=== PATIENT | female | born 1995 | race African-American/Black ===

== ENCOUNTER 2017-04-01 08:45 | Emergency (ER) | payer MEDICAID ==
[~2017-04-01] VITALS: Ht 160 cm; Wt 63.5 kg
[~2017-04-01 08:45] MED LIST: CIPRO500 MG PO; IBUPROFEN800 MG ORAL; MACROBID100 MG ORAL; PRENATAL VITAM1 EAC4 PO; TYLENOL EXTRA500 MG ORAL; ZOFRAN4 M1 ORAL
--- NOTE | 2017-04-01 09:12 | Emergency Room Report ---
History of Present Illness General Chief Complaint: Abdominal Pain Source: Patient, Medical Record Present Illness HPI 22YOF walk-in with 2 days generalized abd pain with nausea/vomiting. States pain only when awake - is able to sleep. No associated fever/chills, diarrhea, sick contacts. No urinary complaints. Went to [facility] yesterday but "they didnt take me seriously." States was at [facility] last week for "left sided stroke" and arranging all the occupational and physical therapy last couple of days has "given me stress and abdominal pain." However not on ASA or other AC post- alleged CVA. Denies any weakness in left side currently. Specific request made for Noco here. Boyfriend arrived later - provided additional HPI: - States patient has history of psych, ?depression. Non-compliant with medication - He has been working more, states she is probably "acting out for attention," "has history of doing this," and "is worried I'm going to leave her so she acts out." - tested positive for meth and MJ at other hospital last week Allergies: Coded Allergies: PENICILLINS (Unverified Allergy, Unknown, 04/19/14) RIFAMPIN (Unverified Allergy, Unknown, 04/19/14) SULFAMETHOXAZOLE (Unverified Allergy, Unknown, 04/19/14) TRIMETHOPRIM (Unverified Allergy, Unknown, 04/19/14) Patient History Past Medical History: none, psych hx Past Surgical History: none Pertinent Family History: none Social History: Reports: drug use, smoking Last Menstrual Period: Depo shot Now: No Immunizations: UTD Reviewed Nursing Documentation: PMH: Agreed, PSxH: Agreed Nursing Documentation-PMH Past Medical History: No History, Except For Hx Cardiac Problems: No Hx Hypertension: No Hx Pacemaker: No Hx Asthma: No Hx COPD: No Hx Diabetes: No Hx Cancer: No Hx Gastrointestinal Problems: No - CHOLECYSTECTOMY Hx Dialysis: No History Of Psychiatric Problem: Yes - Bipolar Hx Neurological Problems: No Hx Cerebrovascular Accident: Yes Hx Seizures: No Review of Systems All Other Systems: negative except mentioned in HPI Physical Exam Vital Signs Date Time Temp Pulse Resp B/P Pulse Ox O2 Delivery O2 Flow Rate FiO2 04/01/17 08:59 98.1 102 20 116/69 98 Room Air Sp02 EP Interpretation: reviewed, abnormal General Appearance: normal inspection, well appearing, no apparent distress, alert, GCS 15, non-toxic, other - Writhing, convulsing on stretcher Eyes: bilateral eye EOMI, bilateral eye PERRL ENT: normal ENT inspection, hearing grossly normal, normal voice Neck: normal inspection, full range of motion, supple, no bony tend Respiratory: normal inspection, lungs clear, normal breath sounds, no rhonchi, no respiratory distress, no retraction, no accessory muscle use, no wheezing Cardiovascular #1: regular rate, rhythm, no edema Gastrointestinal: normal inspection, normal bowel sounds, non tender, soft, no guarding, no hernia Genitourinary: no CVA tenderness Musculoskeletal: normal inspection, back normal, normal range of motion, Nurys' s Sign negative Neurologic: normal inspection, alert, oriented x3, responsive, cooler deliverer III-XII nml as tested, speech normal Psychiatric: normal inspection, judgement/insight normal, mood/affect normal Skin: normal inspection, normal color, no rash Lymphatic: normal inspection Medical Decision Making Diagnostic Impression: Primary Impression: Abdominal pain Qualified Codes: R10.84 - Generalized abdominal pain Additional Impressions: Drug-seeking behavior Methamphetamine abuse Marijuana abuse Malingering ER Course Abdominal pain for 2 days - VS with mild tachycardia d/t dramatic presentation, writhing on stretching. Normotensive. Afebrile - Very histrionic, writhing but when compelled, stops writhing and provides HPI. - Nontender abdomen focally when distracted - Not - UA: hematuria, on period - Utox: + for meth, MJ - Low suspicion for acute bacterial or surgical process because if she had a surgical abdomen or peritonitis she would not be able to writhe, convulse on stretcher - In addition, patient is moving all extremities in writhing on stretcher, ambulated into ED, I question recent CVA/TIA as well. - There is likely a large psych component here, as well as malingering for secondary gain of attention from her boyfriend - Advised STOP any more illicit drug use - Provided info for outpatient psych walk-in clinic at [facility] - Rx Capacian cream for abd pain from MJ abuse DC home with boyfriend Last Vital Signs Date Time Temp Pulse Resp B/P Pulse Ox O2 Delivery O2 Flow Rate FiO2 04/01/17 08:59 98.1 102 20 116/69 98 Room Air Status: improved Disposition: HOME, SELF-CARE Scripts Capsaicin (CAPSAICIN) 42.5 Gm Cream..g. 42.5 GM TP TID for stomach pain for 7 Days, #1 UNIT Prov: CLARA BEE M.D. 04/01/17 Referrals: NOT CHOSEN JAN/,REFERRING (PCP) CLARA BEE M.D. Apr 01, 2017 09:12
[2017-04-01] MEDS ORDERED: Ketorolac 60mg Inj IM ONE (09:15)
[2017-04-01 09:23] LABS: APPEARANCE,URINE CLEAR; KETONES,URINE 2+ (NEGATIVE); LEUKOCYTE ESTERASE ,URINE 1+ (NEGATIVE); NITRITE,URINE NEGATIVE (NEGATIVE); PH,URINE 5 (4.5-8.0); PROTEIN,URINE 2+ (NEGATIVE); UROBILINOGEN,URINE NORMAL MG/DL (0.0-1.0)
[2017-04-01 09:37] LABS: BACTERIA,URINE FEW /HPF; MUCUS,URINE FEW /LPF (NONE/OCC); SQUAMOUS EPITHELIAL CELL,UR FEW /LPF (NONE/OCC)
[2017-04-01] MEDS ORDERED: LORazepam Inj 2mg/ml 1ml IM ONE (09:45)
[2017-04-01] MEDS ORDERED: CAPSAICIN42.5 GM TP (09:51)
[2017-04-01 10:12] VITALS: BP 115/71
[2017-04-02] MEDS ORDERED: NKM (11:31)
[2017-04-02] MEDS ORDERED: NITROFURANTOIN100 M2 ORAL (17:11)
== END 2017-04-01 10:17 | disposition home or self-care (01) ==
LOC: EMR 08:56
DX: R10.9 Unspecified abdominal pain (principal); Z76.5 Malingerer [conscious simulation]; F15.10 Other stimulant abuse, uncomplicated; F12.10 Cannabis abuse, uncomplicated; Z86.73 Personal history of transient ischemic attack (TIA), and cerebral infarction without residual deficits; R11.2 Nausea with vomiting, unspecified; Z90.49 Acquired absence of other specified parts of digestive tract; F31.9 Bipolar disorder, unspecified; Z88.2 Allergy status to sulfonamides; Z88.0 Allergy status to penicillin; Z88.8 Allergy status to other drugs, medicaments and biological substances
CPT/HCPCS: 80300; 81003; 81025; 96372; 99283

== ENCOUNTER 2017-04-02 21:06 | Emergency (ER) | payer MEDICAID, OTHER ==
[~2017-04-02] VITALS: Ht 162.6 cm; Wt 68.0 kg
[~2017-04-02 21:06] MED LIST changes: -ACETAMINOPHEN-1 EAC1 ORAL; -Famotidine 20 MG/ 2ML VIAL IVP ONE; -Haloperidol 5mg/ml Inj IM ONE; -Ketorolac 30mg Inj IV ONE; -LORazepam Inj 2mg/ml 1ml IV ONE; -Morphine Sulfate 4mg/ml Inj IVP ONE; -RANITIDINE HCL150 MG ORAL
[2017-04-02] MEDS ORDERED: Morphine Sulfate 2mg/ml Inj IVP ONE (21:45)
[2017-04-02 22:32] LABS: ALANINE AMINOTRANSFERASE 16 U/L (3-33); ALBUMIN/GLOBULIN RATIO 1.2 (1.0-2.7); ANION GAP 19 (5-15); ASPARTATE AMINO TRANSFERASE 26 U/L (5-40); CARBON DIOXIDE 21 mEQ/L (20-30); CHLORIDE 101 mEQ/L (98-107); CREATININE 0.7 mg/dL (0.5-0.9); GLOMERULAR FILTRATION RATE > 60 mL/min (>60); HEMOLYSIS 14; LIPASE 21 U/L (< 60); POTASSIUM 3.5 mEQ/L (3.4-4.9); SODIUM 141 mEQ/L (135-145); TOTAL PROTEIN 7.9 g/dL (6.6-8.7)
[2017-04-02 22:35] LABS: MEAN CORPUSCULAR HEMOGLOBIN 31.3 PG (27.0-31.0); MEAN CORPUSCULAR HGB CONC 33.1 G/DL (32.0-36.0); MEAN CORPUSCULAR VOLUME 94 FL (80-99); MEAN PLATELET VOLUME 9.9 FL (6.5-10.1); PLATELET COUNT 170 K/UL (150-450); RED CELL DISTRIBUTION WIDTH 12.3 % (11.6-14.8); WHITE BLOOD COUNT 8.7 K/UL (4.8-10.8)
[2017-04-02 23:34] LABS: BAND NEUTROPHILS % (MANUAL) 0 % (0-8); BASOPHILS % (MANUAL) 0 % (0-2); EOSINOPHILS % (MANUAL) 0 % (0-3); LYMPHOCYTES % (MANUAL) 8 % (20-45); NEUTROPHILS % (MANUAL) 88 % (45-75); PLATELET ESTIMATE ADEQUATE; TOTAL CELLS COUNTED 100
[2017-04-02 23:35] LABS: PLATELET MORPHOLOGY NORMAL
[2017-04-03] MEDS ORDERED: Morphine Sulfate 4mg/ml Inj IVP ONE
[2017-04-03] MEDS ORDERED: RANITIDINE HCL150 MG ORAL (00:07)
[2017-04-03] MEDS ORDERED: ACETAMINOPHEN-1 EAC1 ORAL (00:07)
[2017-04-03 00:11] LABS: APPEARANCE,URINE CLOUDY; KETONES,URINE 4+ (NEGATIVE); LEUKOCYTE ESTERASE ,URINE 3+ (NEGATIVE); NITRITE,URINE NEGATIVE (NEGATIVE); PH,URINE 5 (4.5-8.0); PROTEIN,URINE 2+ (NEGATIVE); UROBILINOGEN,URINE 1 MG/DL (0.0-1.0)
[2017-04-03 00:22] LABS: BACTERIA,URINE FEW /HPF; RBC,URINE TNTC /HPF (0 - 2); SQUAMOUS EPITHELIAL CELL,UR MODERATE /LPF (NONE/OCC)
[2017-04-03 00:23] LABS: MUCUS,URINE FEW /LPF (NONE/OCC)
[2017-04-03 00:29] VITALS: BP 110/70
[2017-04-03 00:39] VITALS: BP 110/70
--- NOTE | 2017-04-03 02:48 | Emergency Room Report ---
History of Present Illness General Chief Complaint: Abdominal Pain Source: Patient, Significant Other Present Illness HPI 22-year-old female presents to ED complaining of abdominal pain. States she's had the pain for the last few days. Epigastric, 9/10, sharp. Denies nausea and vomiting. Denies chest pain shortness of breath. Per triage patient has been here earlier today and yesterday for similar complaint. Patient was apparently very agitated and combative and disruptive to the ER. Patient did require sedation on last ED visit. Patient's fiance called and when patient was being triaged. States that patient has an extensive psychiatric history and believes her pain is likely psychosomatic. No other aggravating or relieving factors. Denies any other associated symptom Allergies: Coded Allergies: PENICILLINS (Unverified Allergy, Unknown, 04/19/14) RIFAMPIN (Unverified Allergy, Unknown, 04/19/14) SULFAMETHOXAZOLE (Unverified Allergy, Unknown, 04/19/14) TRIMETHOPRIM (Unverified Allergy, Unknown, 04/19/14) Patient History Past Medical History: CVA/TIA Past Surgical History: freedom Pertinent Family History: none Social History: Denies: alcohol use, drug use, smoking Last Menstrual Period: unk Now: No Immunizations: UTD Reviewed Nursing Documentation: PMH: Agreed, PSxH: Agreed Nursing Documentation-PMH Hx Cardiac Problems: No Hx Hypertension: No Hx Pacemaker: No Hx Asthma: No Hx COPD: No Hx Diabetes: No Hx Cancer: No Hx Gastrointestinal Problems: Yes - CHOLECYSTECTOMY Hx Dialysis: No Hx Neurological Problems: No Hx Cerebrovascular Accident: Yes - stroke 01/25 Hx Seizures: No Review of Systems All Other Systems: negative except mentioned in HPI Physical Exam Vital Signs Date Time Temp Pulse Resp B/P Pulse Ox O2 Delivery O2 Flow Rate FiO2 04/02/17 21:39 98.1 77 16 137/66 98 Room Air Sp02 EP Interpretation: reviewed, normal General Appearance: no apparent distress, alert, GCS 15, non-toxic Head: normocephalic Eyes: bilateral eye PERRL, bilateral eye normal inspection ENT: normal ENT inspection Neck: normal inspection Respiratory: chest non-tender, lungs clear, normal breath sounds, speaking full sentences Cardiovascular #1: regular rate, rhythm, no edema Gastrointestinal: normal bowel sounds, soft, non-distended, no guarding, no rebound, tenderness - epigastric Rectal: deferred Genitourinary: no CVA tenderness Musculoskeletal: normal inspection Neurologic: alert, oriented x3, responsive, motor strength/tone normal, sensory intact, speech normal Psychiatric: anxious Skin: normal inspection Lymphatic: normal inspection Medical Decision Making Diagnostic Impression: Primary Impression: Abdominal pain Qualified Codes: R10.9 - Unspecified abdominal pain Additional Impression: Malingering ER Course Hospital Course 22-year-old F presents to ED with abdominal pain Differential diagnosis includes-appendicitis, cholecystitis, small bowel obstruction, gastritis, Clinical course Patient placed on stretcher. After initial history and physical I ordered labs , IV fluids, pain medications and CT scan Labs - no leukocytosis, electrolytes ok, LFTs normal patient refused CT Scan on last ED visit patient also refused CT scan. Patient has negative workup otherwise. On last visit U tox positive for amphetamines Patient is disruptive to the ER screaming and yelling. I explained to the patient that she continues this behavior she will be discharged I feel this is a highly complex case requiring extensive working including EKG/ Rhythm strip, Xray/CT/US, Blood/urine lab work, repeat exams while in ED, and administration of strong opiates/narcotics for pain control, admission to hospital or close patient follow up. Diagnosis - abdominal pain, malingering Stable and discharged to home. Followup with PMD. Return to ED if symptoms recur or worsen Labs Test 04/02/17 10:35 04/02/17 21:54 Urine Color Yellow Urine Appearance Cloudy Urine pH 5 (4.5-8.0) Urine Specific [place] 1.025 (1.005-1.035) Urine Protein 2+ (NEGATIVE) Urine Glucose (UA) Negative (NEGATIVE) Urine Ketones 4+ (NEGATIVE) Urine Occult Blood 5+ (NEGATIVE) Urine Nitrite Negative (NEGATIVE) Urine Bilirubin Negative (NEGATIVE) Urine Urobilinogen 1 MG/DL (0.0-1.0) Urine Leukocyte Esterase 3+ (NEGATIVE) Urine RBC Tntc /HPF (0 - 2) Urine WBC 10-15 /HPF (0 - 2) Urine Squamous Epithelial Cells Moderate /LPF (NONE/OCC) Urine Bacteria Few /HPF (NONE) Urine Coarse Granular Casts 10-15 /LPF (NONE) Urine Mucus Few /LPF (NONE/OCC) Urine HCG, Qualitative Negative Urine Opiates Screen Positive (NEGATIVE) Urine Barbiturates Screen Negative (NEGATIVE) Phencyclidine (PCP) Screen Negative (NEGATIVE) Urine Amphetamines Screen Negative (NEGATIVE) Urine Benzodiazepines Screen Negative (NEGATIVE) Urine Cocaine Screen Negative (NEGATIVE) Urine Marijuana (THC) Screen Positive (NEGATIVE) White Blood Count 8.7 K/UL (4.8-10.8) Red Blood Count 4.10 M/UL (4.20-5.40) Hemoglobin 12.8 G/DL (12.0-16.0) Hematocrit 38.6 % (37.0-47.0) Mean Corpuscular Volume 94 FL (80-99) Mean Corpuscular Hemoglobin 31.3 PG (27.0-31.0) Mean Corpuscular Hemoglobin Concent 33.1 G/DL (32.0-36.0) Red Cell Distribution Width 12.3 % (11.6-14.8) Platelet Count 170 K/UL (150-450) Mean Platelet Volume 9.9 FL (6.5-10.1) Neutrophils (%) (Auto) % (45.0-75.0) Lymphocytes (%) (Auto) % (20.0-45.0) Monocytes (%) (Auto) % (1.0-10.0) Eosinophils (%) (Auto) % (0.0-3.0) Basophils (%) (Auto) % (0.0-2.0) Differential Total Cells Counted 100 Neutrophils % (Manual) 88 % (45-75) Lymphocytes % (Manual) 8 % (20-45) Monocytes % (Manual) 4 % (1-10) Eosinophils % (Manual) 0 % (0-3) Basophils % (Manual) 0 % (0-2) Band Neutrophils 0 % (0-8) Platelet Estimate Adequate Platelet Morphology Normal Red Blood Cell Morphology Normal Sodium Level 141 mEQ/L (135-145) Potassium Level 3.5 mEQ/L (3.4-4.9) Chloride Level 101 mEQ/L (98-107) Carbon Dioxide Level 21 mEQ/L (20-30) Anion Gap 19 (5-15) Blood Urea Nitrogen 8 mg/dL (7-23) Creatinine 0.7 mg/dL (0.5-0.9) Estimat Glomerular Filtration Rate > 60 mL/min (>60) Glucose Level 133 mg/dL (74-106) Calcium Level 9.0 mg/dL (8.6-10.2) Total Bilirubin 0.3 mg/dL (0.0-1.2) Aspartate Amino Transf (AST/SGOT) 26 U/L (5-40) Alanine Aminotransferase (ALT/SGPT) 16 U/L (3-33) Alkaline Phosphatase 74 U/L (35-104) Total Protein 7.9 g/dL (6.6-8.7) Albumin 4.4 g/dL (3.5-5.2) Globulin 3.5 g/dL Albumin/Globulin Ratio 1.2 (1.0-2.7) Lipase 21 U/L (< 60) CT/MRI/US Diagnostic Results CT/MRI/US Diagnostic Results : Imaging Test Ordered: CT A/P Impression patient refused Last Vital Signs Date Time Temp Pulse Resp B/P Pulse Ox O2 Delivery O2 Flow Rate FiO2 04/03/17 00:39 70 18 110/70 100 Room Air 04/03/17 00:29 97.8 Status: improved Disposition: HOME, SELF-CARE Condition: Stable Scripts Ranitidine Hcl* (ZANTAC*) 150 Mg Tablet 150 MG ORAL TWICE A DAY, #30 TAB Prov: SERENITY MURPHY M.D. 04/03/17 Acetaminophen With Codeine (T#3) (TYLENOL #3 TAB*) Y Tab 1 TAB ORAL Q8H Y for For Pain, #20 TAB Prov: SERENITY MURPHY M.D. 04/03/17 Referrals: [facility],REFERRING (PCP) Patient Instructions: Abdominal Pain, Adult SERENITY MURPHY M.D. Apr 03, 2017 02:48
== END 2017-04-03 00:25 | disposition home or self-care (01) ==
LOC: EMR 21:41
DX: R10.13 Epigastric pain (principal); Z76.5 Malingerer [conscious simulation]; Z90.49 Acquired absence of other specified parts of digestive tract; Z86.73 Personal history of transient ischemic attack (TIA), and cerebral infarction without residual deficits
CPT/HCPCS: 36415; 80053; 80300; 81003; 81025; 83690; 85007; 85025; 87086; 96374; 96375; 99284; J2270; J2405; J7040

== ENCOUNTER → 2017-04-02 | Emergency (ER) | payer MEDICAID ==
[~2017-04-02] VITALS: Ht 167.6 cm; Wt 84.4 kg
[~2017-04-02] MED LIST changes: +ACETAMINOPHEN-1 EAC1 ORAL; +CAPSAICIN42.5 GM TP; +Famotidine 20 MG/ 2ML VIAL IVP ONE; +Haloperidol 5mg/ml Inj IM ONE; +Ketorolac 30mg Inj IV ONE; +LORazepam Inj 2mg/ml 1ml IV ONE; +Morphine Sulfate 4mg/ml Inj IVP ONE; +NITROFURANTOIN100 M2 ORAL; +NKM; +RANITIDINE HCL150 MG ORAL
[2017-04-02] MEDS: Lidocaine 2% Visc 15ml soln ORAL ONE ×2 (12:34→12:42)
[2017-04-02 12:58] LABS: BASOPHILS % (AUTO) 0.9 % (0.0-2.0); EOSINOPHILS % (AUTO) 1.3 % (0.0-3.0); LYMPHOCYTES % (AUTO) 16.5 % (20.0-45.0); MEAN CORPUSCULAR HEMOGLOBIN 30.6 PG (27.0-31.0); MEAN CORPUSCULAR HGB CONC 32.7 G/DL (32.0-36.0); MEAN CORPUSCULAR VOLUME 93 FL (80-99); MEAN PLATELET VOLUME 10.1 FL (6.5-10.1); MONOCYTES % (AUTO) 8.1 % (1.0-10.0); NEUTROPHILS % (AUTO) 73.2 % (45.0-75.0); PLATELET COUNT 189 K/UL (150-450); RED BLOOD COUNT 4.44 M/UL (4.20-5.40); RED CELL DISTRIBUTION WIDTH 12.5 % (11.6-14.8); WHITE BLOOD COUNT 6.7 K/UL (4.8-10.8)
[2017-04-02 13:01] LABS: ALANINE AMINOTRANSFERASE 14 U/L (3-33); ALBUMIN/GLOBULIN RATIO 1.3 (1.0-2.7); ANION GAP 17 (5-15); ASPARTATE AMINO TRANSFERASE 23 U/L (5-40); CALCIUM 8.8 mg/dL (8.6-10.2); CARBON DIOXIDE 21 mEQ/L (20-30); CHLORIDE 101 mEQ/L (98-107); CREATININE 0.8 mg/dL (0.5-0.9); GLOMERULAR FILTRATION RATE > 60 mL/min (>60); HEMOLYSIS 5; POTASSIUM 3.7 mEQ/L (3.4-4.9); SODIUM 139 mEQ/L (135-145); TOTAL PROTEIN 7.4 g/dL (6.6-8.7); TROPONIN I < 0.30 ng/mL (<=0.30)
[2017-04-02 13:06] LABS: APPEARANCE,URINE SLIGHTLY CLOUDY; KETONES,URINE 2+ (NEGATIVE); LEUKOCYTE ESTERASE ,URINE 3+ (NEGATIVE); NITRITE,URINE NEGATIVE (NEGATIVE); PH,URINE 6 (4.5-8.0); PROTEIN,URINE 2+ (NEGATIVE); UROBILINOGEN,URINE 1 MG/DL (0.0-1.0)
[2017-04-02 13:11] LABS: CKMB 2.1 ng/mL (< 3.8)
[2017-04-02 13:17] LABS: RBC,URINE TNTC /HPF (0 - 2)
[2017-04-02 13:18] LABS: BACTERIA,URINE MODERATE /HPF; SQUAMOUS EPITHELIAL CELL,UR MANY /LPF (NONE/OCC); WBC,URINE 20-30 /HPF (0 - 2)
[2017-04-02 14:33] VITALS: BP 137/83
--- NOTE | 2017-04-02 15:47 | Emergency Room Report ---
History of Present Illness General Chief Complaint: Chest Pain Source: Patient, Medical Record Present Illness HPI This patient is well known to [facility]. She was here yesterday for the same sx. She c/o abdominal pain and nausea and vomiting. She has a significant psychiatric hx. The patient was here yesterday with her boyfriend. Per the medical record, the patient is very dramatic when she is worried that her boyfriend is going to leave her. She currently is screaming and crying and dancing around the room. She is difficult to obtain a history from. Of note she is found to have amphetamines and THC in her urine. With review of yesterday's visit, it sounds like a very similar presentation. Allergies: Coded Allergies: PENICILLINS (Unverified Allergy, Unknown, 04/19/14) RIFAMPIN (Unverified Allergy, Unknown, 04/19/14) SULFAMETHOXAZOLE (Unverified Allergy, Unknown, 04/19/14) TRIMETHOPRIM (Unverified Allergy, Unknown, 04/19/14) Patient History Past Medical History: see triage record, CVA/TIA, psych hx Past Surgical History: freedom Social History: Reports: drug use, Denies: alcohol use, smoking Last Menstrual Period: on control Now: No : 1 Para: 1 Reviewed Nursing Documentation: PMH: Agreed, PSxH: Agreed Nursing Documentation-PMH Past Medical History: No History, Except For Hx Cardiac Problems: No Hx Hypertension: No Hx Pacemaker: No Hx Asthma: No Hx COPD: No Hx Diabetes: No Hx Cancer: No Hx Gastrointestinal Problems: Yes - CHOLECYSTECTOMY Hx Dialysis: No Hx Neurological Problems: No Hx Cerebrovascular Accident: Yes - stroke 01/25 Hx Seizures: No Review of Systems All Other Systems: negative except mentioned in HPI Physical Exam Vital Signs Date Time Temp Pulse Resp B/P Pulse Ox O2 Delivery O2 Flow Rate FiO2 04/02/17 11:28 97.9 105 22 140/86 99 Room Air Sp02 EP Interpretation: reviewed, normal General Appearance: no apparent distress, alert, GCS 15, non-toxic Head: normocephalic, atraumatic Eyes: bilateral eye PERRL, bilateral eye normal inspection ENT: hearing grossly normal, normal pharynx, no angioedema, normal voice Neck: full range of motion, supple/symm/no masses Respiratory: chest non-tender, lungs clear, normal breath sounds, speaking full sentences Cardiovascular #1: no edema, tachycardia Gastrointestinal: normal bowel sounds, non tender, soft, non-distended, no guarding, no rebound, tenderness - Upper abdomen Rectal: deferred Musculoskeletal: back normal, normal range of motion, non-tender Neurologic: alert, oriented x3, responsive, motor strength/tone normal, sensory intact, speech normal Psychiatric: memory normal, no suicidal/homicidal ideation, anxious - Dramatic , odd behavior and affect Skin: normal color, no rash, warm/dry, well hydrated Medical Decision Making Diagnostic Impression: Primary Impression: Abdominal pain Additional Impressions: Drug-seeking behavior Marijuana abuse Methamphetamine abuse UTI (lower urinary tract infection) ER Course This pt is very difficult to manage. She has a personality disorder and is very difficult to assess. She also is abusing drugs and has amphetamine toxicity. The patient was very dramatic with screaming and crying and asking for pain medicine, however, when she was being given IV morphine for pain she started having worsening anxiety and started screaming to stop giving the morphine. I did give Ativan IV but this seemed to have minimal affect on the patient's behavior. I also gave Haldol which also had minimal affect. The patient was very disruptive to the emergency department. She also was trying to walk out the ambulance doors at one point but was falling all over the place and unable to walk with a normal gait. I was unable to determine whether this was behavioral or intoxication and I was concerned that this patient did not have a way home or family to look after her in an intoxicated condition. Unfortunately she continued to try to leave and was very disruptive. She was moved to a private room and restraints were placed temporarily. Eventually this patient agreed to be calm and cooperative and not attempt to leave and the restraints were removed. The patient's abdominal pain appeared to have resolved. The patient did have multiple episodes of vomiting that was consistent with cannabis hyperemesis syndrome. I wanted to obtain a CT of the abdomen however the patient refused. Lab w/u was reassuring and only was pertinent for +UDS with amphetamine and THC. The patient's mother and boyfriend were contacted and wanted the patient to be sent home in a taxi or lyft, however, the patient was in no condition to be in this type of transportation. At the time of this note, the family was instructed to come get the patient and she was awaiting their arrival. She was calm at this time. Labs Test 04/02/17 12:25 White Blood Count 6.7 K/UL (4.8-10.8) Red Blood Count 4.44 M/UL (4.20-5.40) Hemoglobin 13.6 G/DL (12.0-16.0) Hematocrit 41.5 % (37.0-47.0) Mean Corpuscular Volume 93 FL (80-99) Mean Corpuscular Hemoglobin 30.6 PG (27.0-31.0) Mean Corpuscular Hemoglobin Concent 32.7 G/DL (32.0-36.0) Red Cell Distribution Width 12.5 % (11.6-14.8) Platelet Count 189 K/UL (150-450) Mean Platelet Volume 10.1 FL (6.5-10.1) Neutrophils (%) (Auto) 73.2 % (45.0-75.0) Lymphocytes (%) (Auto) 16.5 % (20.0-45.0) Monocytes (%) (Auto) 8.1 % (1.0-10.0) Eosinophils (%) (Auto) 1.3 % (0.0-3.0) Basophils (%) (Auto) 0.9 % (0.0-2.0) Urine Color Brown Urine Appearance Slightly cloudy Urine pH 6 (4.5-8.0) Urine Specific [place] 1.025 (1.005-1.035) Urine Protein 2+ (NEGATIVE) Urine Glucose (UA) Negative (NEGATIVE) Urine Ketones 2+ (NEGATIVE) Urine Occult Blood 5+ (NEGATIVE) Urine Nitrite Negative (NEGATIVE) Urine Bilirubin Negative (NEGATIVE) Urine Urobilinogen 1 MG/DL (0.0-1.0) Urine Leukocyte Esterase 3+ (NEGATIVE) Urine RBC Tntc /HPF (0 - 2) Urine WBC 20-30 /HPF (0 - 2) Urine Squamous Epithelial Cells Many /LPF (NONE/OCC) Urine Bacteria Moderate /HPF (NONE) Urine HCG, Qualitative Negative Sodium Level 139 mEQ/L (135-145) Potassium Level 3.7 mEQ/L (3.4-4.9) Chloride Level 101 mEQ/L (98-107) Carbon Dioxide Level 21 mEQ/L (20-30) Anion Gap 17 (5-15) Blood Urea Nitrogen 9 mg/dL (7-23) Creatinine 0.8 mg/dL (0.5-0.9) Estimat Glomerular Filtration Rate > 60 mL/min (>60) Glucose Level 111 mg/dL (74-106) Calcium Level 8.8 mg/dL (8.6-10.2) Total Bilirubin 0.4 mg/dL (0.0-1.2) Aspartate Amino Transf (AST/SGOT) 23 U/L (5-40) Alanine Aminotransferase (ALT/SGPT) 14 U/L (3-33) Alkaline Phosphatase 77 U/L (35-104) Total Creatine Kinase 371 U/L (26-140) Creatine Kinase MB 2.1 ng/mL (< 3.8) Creatine Kinase MB Relative Index 0.5 Troponin I < 0.30 ng/mL (<=0.30) Total Protein 7.4 g/dL (6.6-8.7) Albumin 4.2 g/dL (3.5-5.2) Globulin 3.2 g/dL Albumin/Globulin Ratio 1.3 (1.0-2.7) Urine Opiates Screen Negative (NEGATIVE) Urine Barbiturates Screen Negative (NEGATIVE) Phencyclidine (PCP) Screen Negative (NEGATIVE) Urine Amphetamines Screen Positive (NEGATIVE) Urine Benzodiazepines Screen Negative (NEGATIVE) Urine Cocaine Screen Negative (NEGATIVE) Urine Marijuana (THC) Screen Positive (NEGATIVE) EKG Diagnostic Results Rate: tachycardiac Rhythm: other ST Segments: no acute changes Other Impression S.tachycardia Rhythm Strip Diag. Results EP Interpretation: yes Rate: 100's Rhythm: no PVC's, no ectopy Other Impression S.tachycardia Last Vital Signs Date Time Temp Pulse Resp B/P Pulse Ox O2 Delivery O2 Flow Rate FiO2 04/02/17 14:33 98.1 102 21 137/83 99 Room Air Disposition: HOME, SELF-CARE Condition: Improved Scripts Nitrofurantoin Monohyd/M-Cryst* (MACROBID 100 MG*) 100 Mg Capsule 100 MG ORAL EVERY 12 HOURS, #14 CAP Prov: Jaden Gallagher M.D. 04/02/17 Referrals: [facility],REFERRING (PCP) JERSON ORNELAS D.O. Apr 02, 2017 15:47
[2017-04-02 16:42] VITALS: BP 132/79
[2017-04-02 16:43] VITALS: BP 132/79
--- NOTE | 2017-04-02 16:44 | Diagnostic Imaging Report ---
Indication: Chest pain Technique: One view of the chest Comparison: none Findings: Lungs and pleural spaces are clear. Heart size is normal. Impression: No acute process
--- NOTE | 2017-04-05 20:22 | Cardiology Report ---
APPROVED REPORT EKG Measurement Heart [id number] Sinus tachycardia Rightward axis T wave abnormality, consider inferior ischemia Abnormal ECG
== END | disposition home or self-care (01) ==
LOC: EMR 12:06
DX: R10.9 Unspecified abdominal pain (principal); Z76.5 Malingerer [conscious simulation]; F12.10 Cannabis abuse, uncomplicated; F15.10 Other stimulant abuse, uncomplicated; N39.0 Urinary tract infection, site not specified; R00.0 Tachycardia, unspecified; R11.2 Nausea with vomiting, unspecified; Z88.0 Allergy status to penicillin; Z88.2 Allergy status to sulfonamides; Z88.8 Allergy status to other drugs, medicaments and biological substances; Z86.73 Personal history of transient ischemic attack (TIA), and cerebral infarction without residual deficits; Z90.49 Acquired absence of other specified parts of digestive tract
CPT/HCPCS: 36415; 71010; 80053; 80300; 81003; 81025; 82550; 82553; 84484; 85025; 87086; 93005; 96360; 96372; 96374; 96375; 99284; J1630; J1885; J2270; S0028

== ENCOUNTER 2017-04-07 23:52 | Emergency (ER) | payer MEDICAID, OTHER ==
[~2017-04-07] VITALS: Ht 167.6 cm; Wt 84.4 kg
[~2017-04-07 23:52] MED LIST changes: +ACETAMINOPHEN-1 EAC1 ORAL; +RANITIDINE HCL150 MG ORAL
[2017-04-07 23:55] VITALS: BP 148/104
[2017-04-08 00:20] VITALS: BP 132/95
--- NOTE | 2017-04-08 04:02 | Emergency Room Report ---
History of Present Illness General Chief Complaint: Chest Pain Source: Patient Present Illness HPI 22-year-old female presents ED complaining of chest pain x1 day. Pain is sharp , 8/10, nonradiating. Denies shortness of breath. Patient is well-known to him she has been here multiple times recently for similar presentation. Has complained of chest pain and abdominal pain. Workups have been negative. Patient also has history of methamphetamine abuse. Patient has extensive psychiatric history. No other aggravating relieving factors. No other associated symptoms Allergies: Coded Allergies: PENICILLINS (Unverified Allergy, Unknown, 04/19/14) RIFAMPIN (Unverified Allergy, Unknown, 04/19/14) SULFAMETHOXAZOLE (Unverified Allergy, Unknown, 04/19/14) TRIMETHOPRIM (Unverified Allergy, Unknown, 04/19/14) Patient History Past Surgical History: freedom Pertinent Family History: none Social History: Reports: drug use, Denies: alcohol use, smoking Last Menstrual Period: LAST YEAR, ON DEPO SHOT Now: No Immunizations: UTD Reviewed Nursing Documentation: PMH: Agreed, PSxH: Agreed Nursing Documentation-PMH Past Medical History: No Stated History Hx Cardiac Problems: No Hx Hypertension: No Hx Pacemaker: No Hx Asthma: No Hx COPD: No Hx Diabetes: No Hx Cancer: No Hx Gastrointestinal Problems: Yes - CHOLECYSTECTOMY Hx Dialysis: No Hx Neurological Problems: No Hx Cerebrovascular Accident: Yes - stroke 01/25 Hx Seizures: No Review of Systems All Other Systems: negative except mentioned in HPI Physical Exam Vital Signs Date Time Temp Pulse Resp B/P Pulse Ox O2 Delivery O2 Flow Rate FiO2 04/07/17 23:53 98.6 105 22 148/104 96 Room Air Sp02 EP Interpretation: reviewed, normal General Appearance: no apparent distress, alert, GCS 15, non-toxic Head: normocephalic, atraumatic Eyes: bilateral eye PERRL, bilateral eye normal inspection ENT: hearing grossly normal, normal pharynx, no angioedema, normal voice Neck: full range of motion, supple/symm/no masses Respiratory: chest non-tender, lungs clear, normal breath sounds, speaking full sentences Cardiovascular #1: regular rate, rhythm, no edema Cardiovascular #2: 2+ carotid (R), 2+ carotid (L), 2+ radial (R), 2+ radial (L) , 2+ dorsalis pedis (R), 2+ dorsalis pedis (L) Gastrointestinal: normal bowel sounds, non tender, soft, non-distended, no guarding, no rebound Rectal: deferred Genitourinary: normal inspection, no CVA tenderness Musculoskeletal: back normal, gait/station normal, normal range of motion, non- tender Neurologic: alert, oriented x3, responsive, motor strength/tone normal, sensory intact, speech normal Psychiatric: anxious Reflexes: 3+ bicep (R), 3+ bicep (L), 3+ tricep (R), 3+ tricep (L), 3+ knee (R) , 3+ knee (L) Skin: normal color, no rash, warm/dry, well hydrated Lymphatic: no adenopathy Medical Decision Making Diagnostic Impression: Primary Impression: Chest pain Qualified Codes: R07.9 - Chest pain, unspecified Additional Impressions: Malingering Methamphetamine abuse ER Course 22-year-old female presents to ED complaining of chest pain Differential-anxiety, substance abuse, ACS Patient placed on stretcher after initial history and physical patient refused EKG Patient has been here multiple times recently for similar presentations of chest pain and abdominal pain. Lab work and EKGs always been unremarkable. Patient has refused CT multiple times I spoke to the patient's fianc in the past-patient has history of malingering and "attention-getting" when she is being ignored. Patient aspirated agreed to disturbance to the floor the emergency room in the past. Patient required sedation once because of her behavior I explained to the patient that if she is to refuse EKG and blood work at this time we will not proceed further and she'll be discharged Patient agrees to her discharge papers Diagnosis-chest pain, malingering, methamphetamine abuse Is discharged to home Last Vital Signs Date Time Temp Pulse Resp B/P Pulse Ox O2 Delivery O2 Flow Rate FiO2 04/08/17 00:20 98.6 101 20 132/95 98 Room Air Status: improved Disposition: HOME, SELF-CARE Condition: Stable Referrals: [facility],REFERRING (PCP) Patient Instructions: Nonspecific Chest Pain SERENITY MURPHY M.D. Apr 08, 2017 04:02
== END 2017-04-08 00:20 | disposition home or self-care (01) ==
LOC: EMR 04-08 00:16
DX: R07.9 Chest pain, unspecified (principal); Z76.5 Malingerer [conscious simulation]; F15.10 Other stimulant abuse, uncomplicated; Z86.73 Personal history of transient ischemic attack (TIA), and cerebral infarction without residual deficits; Z90.49 Acquired absence of other specified parts of digestive tract; Z88.2 Allergy status to sulfonamides; Z88.1 Allergy status to other antibiotic agents
CPT/HCPCS: 99282

== ENCOUNTER 2017-10-20 00:22 | Emergency (ER) | payer OTHER ==
[~2017-10-20] VITALS: Ht 167.6 cm; Wt 64.0 kg
[2017-10-20 00:35] VITALS: BP 111/70
[2017-10-20] MEDS ORDERED: Ketorolac 30mg Inj IM ONE (00:45)
[2017-10-20] MEDS ORDERED: Lidocaine 2% Visc 15ml soln ORAL ONE (00:45)
[2017-10-20] MEDS ORDERED: Mylanta II UD 30ml ORAL ONE (00:45)
[2017-10-20] MEDS ORDERED: Dicyclomine HCl 10mg/5ml oral soln ORAL ONE (00:45)
[2017-10-20] MEDS ORDERED: Ondansetron ODT 8mg tab ORAL ONE (00:45)
--- NOTE | 2017-10-20 00:50 | Emergency Room Report ---
History of Present Illness General Chief Complaint: Abdominal Pain Source: Patient Present Illness HPI 22-year-old female, history of chronic pain, presenting with chest pain and abdominal pain. Patient has been to the emergency room multiple times in the past for chest pain and abdominal pain. Has refused blood work and CTs in the past. She is currently stating that she has had her chest and abdominal pain for "a long time", intermittent. Reports some nausea and vomiting. No diarrhea. No dysuria or hematuria. No fever no chills. This pain is similar to all other times she has had pain in the past. Allergies: Coded Allergies: PENICILLINS (Unverified Allergy, Unknown, 04/19/14) RIFAMPIN (Unverified Allergy, Unknown, 04/19/14) SULFAMETHOXAZOLE (Unverified Allergy, Unknown, 04/19/14) TRIMETHOPRIM (Unverified Allergy, Unknown, 04/19/14) Patient History Past Medical History: see triage record Past Surgical History: none Pertinent Family History: none Last Menstrual Period: none Now: No Reviewed Nursing Documentation: PMH: Agreed, PSxH: Agreed Nursing Documentation-PMH Hx Cardiac Problems: No Hx Hypertension: No Hx Pacemaker: No Hx Asthma: No Hx COPD: No Hx Diabetes: No Hx Cancer: No Hx Gastrointestinal Problems: Yes - CHOLECYSTECTOMY Hx Dialysis: No Hx Neurological Problems: No Hx Cerebrovascular Accident: Yes - stroke 01/25 Hx Seizures: No Review of Systems All Other Systems: negative except mentioned in HPI Physical Exam Vital Signs Date Time Temp Pulse Resp B/P (MAP) Pulse Ox O2 Delivery O2 Flow Rate FiO2 10/20/17 00:25 99.1 114 18 111/70 98 Room Air Sp02 EP Interpretation: reviewed, normal General Appearance: alert, GCS 15, non-toxic, mild distress Head: normocephalic, atraumatic Eyes: bilateral eye normal inspection, bilateral eye PERRL, bilateral eye EOMI ENT: normal ENT inspection, normal pharynx, normal voice, moist mucus membranes Neck: normal inspection, full range of motion, supple Respiratory: normal inspection, lungs clear, normal breath sounds, no respiratory distress, no retraction, no wheezing, speaking full sentences, chest symmetrical Cardiovascular #1: normal inspection, regular rate, rhythm, no edema, normal capillary refill Cardiovascular #2: 2+ radial (R), 2+ radial (L) Gastrointestinal: normal inspection, non tender, soft, non-distended, no guarding, other - abdomen is soft nontender all quadrants, no guarding, no rigidity, normal BS Musculoskeletal: normal inspection, back normal, normal range of motion, non- tender Neurologic: normal inspection, alert, oriented x3, responsive, motor strength/ tone normal, sensory intact, normal gait, speech normal Psychiatric: normal inspection, judgement/insight normal, memory normal Skin: normal inspection, normal color, no rash, warm/dry, well hydrated, normal turgor Medical Decision Making Diagnostic Impression: Primary Impression: Chronic pain Additional Impression: UTI (urinary tract infection) ER Course 22-year-old female with chest pain and abdominal pain, chronic for many months Differential Diagnosis: Gastritis, gastroenteritis, UTI/pyelo At this time abdomen is soft nontender all quadrants, no grimace to deep palpation, not likely to have acute intra-abdominal surgical pathology pt also with long history of malingering and drug seeking behavior Plan: Basic labs, ua, ekg Pepcid, maalox, pain control, IVF ER course: Patient has remained stable during ED stay. positive UA given abx has been sleeping comfortably, nad, pain improved. Disposition: Patient is to be discharged to home. Prescriptions given are macrobid Patient is instructed to follow up with their primary care doctor within 5 days. Strict return precautions discussed with patient such as fever, chills, worsening/severe abdominal pain, nausea, vomiting, black or bloody stools, which may indicate severe illness. Patient verbalizes understanding and agrees with plan. Please note that this Emergency Department Report was dictated using [employer] inspector technology software, occasionally this can lead to erroneous entry secondary to interpretation by the dictation equipment EKG Diagnostic Results EP Interpretation: Yes Rate: normal Rhythm: NSR ST Segments: No acute changes ASA given to patient: No Rhythm Strip EP Interpretation: Yes Rate:60 Rhythm: NSR, no PVCs, no ectopy Chest X-ray CXR: Ordered: Yes 1 view Indication: Chest pain EP interpretation: Yes Interpretation: No consolidation, no effusion, no PTX, no acute cardiopulmonary disease Impression: No acute disease Electronically signed by Walt Quintana MD Laboratory Tests Test 10/20/17 02:07 10/20/17 02:40 Urine Color Yellow Urine Appearance Clear Urine pH 7 (4.5-8.0) Urine Specific [place] 1.015 (1.005-1.035) Urine Protein Negative (NEGATIVE) Urine Glucose (UA) Negative (NEGATIVE) Urine Ketones Negative (NEGATIVE) Urine Occult Blood Negative (NEGATIVE) Urine Nitrite Negative (NEGATIVE) Urine Bilirubin Negative (NEGATIVE) Urine Urobilinogen 8 MG/DL (0.0-1.0) H Urine Leukocyte Esterase 2+ (NEGATIVE) H Urine RBC 0-2 /HPF (0 - 2) Urine WBC 15-20 /HPF (0 - 2) H Urine Squamous Epithelial Cells Many /LPF (NONE/OCC) H Urine Amorphous Sediment Moderate /LPF (NONE) H Urine Bacteria Few /HPF (NONE) Urine HCG, Qualitative Negative Urine Opiates Screen Negative (NEGATIVE) Urine Barbiturates Screen Negative (NEGATIVE) Phencyclidine (PCP) Screen Negative (NEGATIVE) Urine Amphetamines Screen Negative (NEGATIVE) Urine Benzodiazepines Screen Negative (NEGATIVE) Urine Cocaine Screen Negative (NEGATIVE) Urine Marijuana (THC) Screen Positive (NEGATIVE) H White Blood Count 5.4 K/UL (4.8-10.8) Red Blood Count 4.53 M/UL (4.20-5.40) Hemoglobin 11.6 G/DL (12.0-16.0) L Hematocrit 36.9 % (37.0-47.0) L Mean Corpuscular Volume 82 FL (80-99) Mean Corpuscular Hemoglobin 25.7 PG (27.0-31.0) L Mean Corpuscular Hemoglobin Concent 31.5 G/DL (32.0-36.0) L Red Cell Distribution Width 17.5 % (11.6-14.8) H Platelet Count 180 K/UL (150-450) Mean Platelet Volume 10.9 FL (6.5-10.1) H Neutrophils (%) (Auto) 75.5 % (45.0-75.0) H Lymphocytes (%) (Auto) 14.2 % (20.0-45.0) L Monocytes (%) (Auto) 9.2 % (1.0-10.0) Eosinophils (%) (Auto) 0.6 % (0.0-3.0) Basophils (%) (Auto) 0.5 % (0.0-2.0) Sodium Level 141 MMOL/L (136-145) Potassium Level 3.1 MMOL/L (3.5-5.1) L Chloride Level 106 MMOL/L (98-107) Carbon Dioxide Level 27 MMOL/L (21-32) Anion Gap 8 mmol/L (5-15) Blood Urea Nitrogen 6 mg/dL (7-18) L Creatinine 0.8 MG/DL (0.55-1.30) Estimate Glomerular Filtration Rate > 60 mL/min (>60) Glucose Level 107 MG/DL (74-106) H Calcium Level 8.3 MG/DL (8.5-10.1) L Total Bilirubin 0.3 MG/DL (0.2-1.0) Aspartate Amino Transferase (AST) 86 U/L (15-37) H Alanine Aminotransferase (ALT) 37 U/L (12-78) Alkaline Phosphatase 71 U/L (46-116) Total Protein 6.6 G/DL (6.4-8.2) Albumin 3.6 G/DL (3.4-5.0) Globulin 3.0 g/dL Albumin/Globulin Ratio 1.2 (1.0-2.7) Lipase 187 U/L (73-393) Last Vital Signs Date Time Temp Pulse Resp B/P (MAP) Pulse Ox O2 Delivery O2 Flow Rate FiO2 10/20/17 00:25 99.1 114 18 111/70 98 Room Air Disposition: HOME, SELF-CARE Condition: Improved Scripts Nitrofurantoin Monohyd/M-Cryst* (MACROBID 100 MG*) 100 Mg Capsule 100 MG ORAL EVERY 12 HOURS for 7 Days, #14 CAP Prov: Walt Quintana M.D. 10/20/17 Patient Instructions: Nonspecific Chest Pain, [id number], Abdominal Pain, Adult Walt Quintana M.D. Oct 20, 2017 00:50
[2017-10-20 02:00] VITALS: BP 108/66
[2017-10-20 02:20] LABS: APPEARANCE,URINE CLEAR; BILIRUBIN, URINE NEGATIVE (NEGATIVE); GLUCOSE, URINE (UA) NEGATIVE (NEGATIVE); KETONES,URINE NEGATIVE (NEGATIVE); LEUKOCYTE ESTERASE ,URINE 2+ (NEGATIVE); NITRITE,URINE NEGATIVE (NEGATIVE); PH,URINE 7 (4.5-8.0); PROTEIN,URINE NEGATIVE (NEGATIVE); UROBILINOGEN,URINE 8 MG/DL (0.0-1.0)
[2017-10-20 02:30] LABS: COLOR,URINE YELLOW
[2017-10-20 03:05] LABS: BASOPHILS % (AUTO) 0.5 % (0.0-2.0); EOSINOPHILS % (AUTO) 0.6 % (0.0-3.0); HEMATOCRIT 36.9 % (37.0-47.0); HEMOGLOBIN 11.6 G/DL (12.0-16.0); LYMPHOCYTES % (AUTO) 14.2 % (20.0-45.0); MEAN CORPUSCULAR VOLUME 82 FL (80-99); MONOCYTES % (AUTO) 9.2 % (1.0-10.0); NEUTROPHILS % (AUTO) 75.5 % (45.0-75.0); PLATELET COUNT 180 K/UL (150-450); RED BLOOD COUNT 4.53 M/UL (4.20-5.40); RED CELL DISTRIBUTION WIDTH 17.5 % (11.6-14.8); WHITE BLOOD COUNT 5.4 K/UL (4.8-10.8)
[2017-10-20] MEDS ORDERED: NITROFURANTOIN100 M2 ORAL (03:08)
[2017-10-20 03:15] LABS: ANION GAP 8 mmol/L (5-15); BLOOD UREA NITROGEN 6 mg/dL (7-18); CALCIUM 8.3 MG/DL (8.5-10.1); CARBON DIOXIDE 27 MMOL/L (21-32); CHLORIDE 106 MMOL/L (98-107); CREATININE 0.8 MG/DL (0.55-1.30); POTASSIUM 3.1 MMOL/L (3.5-5.1); SODIUM 141 MMOL/L (136-145)
[2017-10-20 03:20] LABS: ALANINE AMINOTRANSFERASE 37 U/L (12-78); ALBUMIN 3.6 G/DL (3.4-5.0); ALBUMIN/GLOBULIN RATIO 1.2 (1.0-2.7); ALKALINE PHOSPHATASE 71 U/L (46-116); ASPARTATE AMINO TRANSFERASE 86 U/L (15-37); BILIRUBIN,TOTAL 0.3 MG/DL (0.2-1.0)
[2017-10-20 03:50] VITALS: BP 105/70
[2017-10-20 04:00] VITALS: BP 105/70
--- NOTE | 2017-10-20 11:31 | Diagnostic Imaging Report ---
Indication: Chest pain Technique: XRAY Chest 1v Comparison: 03/30/2017 Findings: Heart size and mediastinal contours are within normal limits given technique. There is no focal consolidation, pneumothorax or pleural effusion. Osseous structures demonstrate no acute abnormality. Impression: No radiographic evidence of acute cardiopulmonary disease.
--- NOTE | 2017-10-22 15:01 | Cardiology Report ---
APPROVED REPORT EKG Measurement Heart [id number] Sinus bradycardia with sinus arrhythmia Rightward axis Borderline ECG
[2017-11-25] MEDS ORDERED: CLINDAMYCIN HC150 MG ORAL (02:19)
[2017-11-25] MEDS ORDERED: NAPROSYN500 M1 ORAL (04:10)
[2017-11-28] MEDS ORDERED: NITROFURANTOIN100 M2 ORAL (09:28)
== END 2017-10-20 04:00 | disposition home or self-care (01) ==
LOC: EMR 00:33
DX: G89.29 Other chronic pain (principal); N39.0 Urinary tract infection, site not specified; R07.9 Chest pain, unspecified; R10.9 Unspecified abdominal pain; Z88.0 Allergy status to penicillin; Z88.2 Allergy status to sulfonamides; Z88.8 Allergy status to other drugs, medicaments and biological substances; Z90.49 Acquired absence of other specified parts of digestive tract; Z86.73 Personal history of transient ischemic attack (TIA), and cerebral infarction without residual deficits
CPT/HCPCS: 36415; 71045; 80053; 80307; 81003; 81025; 83690; 85025; 87086; 87181; 93005; 96372; 99284; J1885; Q0162

== ENCOUNTER 2017-11-09 11:00 | Emergency (ER) | payer OTHER ==
[~2017-11-09] VITALS: Ht 167.6 cm; Wt 64.0 kg
[2017-11-09] MEDS ORDERED: Tubing IV Cassette IV ONE (11:57)
[2017-11-09] MEDS ORDERED: Morphine Sulfate 4mg/ml Inj IVP ONE (12:00)
[2017-11-09 12:06] LABS: BASOPHILS % (AUTO) 0.9 % (0.0-2.0); EOSINOPHILS % (AUTO) 2.3 % (0.0-3.0); HEMATOCRIT 38.5 % (37.0-47.0); HEMOGLOBIN 11.7 G/DL (12.0-16.0); LYMPHOCYTES % (AUTO) 12.5 % (20.0-45.0); MEAN CORPUSCULAR VOLUME 82 FL (80-99); MONOCYTES % (AUTO) 12.2 % (1.0-10.0); NEUTROPHILS % (AUTO) 72.2 % (45.0-75.0); PLATELET COUNT 249 K/UL (150-450); RED BLOOD COUNT 4.67 M/UL (4.20-5.40); RED CELL DISTRIBUTION WIDTH 17.8 % (11.6-14.8); WHITE BLOOD COUNT 5.6 K/UL (4.8-10.8)
[2017-11-09 12:16] LABS: ANION GAP 9 mmol/L (5-15); BLOOD UREA NITROGEN 10 mg/dL (7-18); CARBON DIOXIDE 26 MMOL/L (21-32); CHLORIDE 107 MMOL/L (98-107); CREATININE 0.6 MG/DL (0.55-1.30); POTASSIUM 3.2 MMOL/L (3.5-5.1); SODIUM 142 MMOL/L (136-145)
[2017-11-09 12:20] LABS: ALANINE AMINOTRANSFERASE 19 U/L (12-78); ALBUMIN/GLOBULIN RATIO 1.1 (1.0-2.7); ALKALINE PHOSPHATASE 73 U/L (46-116); ASPARTATE AMINO TRANSFERASE 17 U/L (15-37); BILIRUBIN,TOTAL 0.5 MG/DL (0.2-1.0)
[2017-11-09 12:22] LABS: APPEARANCE,URINE TURBID; BILIRUBIN, URINE 2+ (NEGATIVE); GLUCOSE, URINE (UA) NEGATIVE (NEGATIVE); KETONES,URINE 1+ (NEGATIVE); LEUKOCYTE ESTERASE ,URINE 3+ (NEGATIVE); NITRITE,URINE POSITIVE (NEGATIVE); PH,URINE 6.5 (4.5-8.0); PROTEIN,URINE 3+ (NEGATIVE); UROBILINOGEN,URINE 8 MG/DL (0.0-1.0)
[2017-11-09 12:26] LABS: COLOR,URINE YELLOW
[2017-11-09 12:30] VITALS: BP 122/75
[2017-11-09] MEDS ORDERED: Hydromorphone 0.5mg/0.5ml inj IVP ONE (13:00)
[2017-11-09] MEDS ORDERED: DiphenhydrAMINE 50mg/ml Inj IVP ONE ×2 (13:45→16:45)
[2017-11-09 14:00] VITALS: BP 113/55
[2017-11-09] MEDS ORDERED: cefTRIAXone 1 GM in NS 55 ML IVPB ONE (14:30)
[2017-11-09] MEDS ORDERED: Tubing IV Secondary IV ONE (15:19)
[2017-11-09] MEDS ORDERED: NS 55 ML IV ONE (15:19)
[2017-11-09] MEDS ORDERED: LORazepam Inj 2mg/ml 1ml IV ONE (15:30)
[2017-11-09] MEDS ORDERED: Mylanta II UD 30ml ORAL ONE (15:30)
[2017-11-09] MEDS ORDERED: Lidocaine 2% Visc 15ml soln ORAL ONE (15:30)
[2017-11-09 16:00] VITALS: BP 117/57
--- NOTE | 2017-11-09 16:10 | Emergency Room Report ---
History of Present Illness General Chief Complaint: Abdominal Pain Source: Patient Present Illness HPI Patient presents with severe epigastric pain. She was told recently that she has bacterial inflammation in her stomach. Insurance didn't cover treatment and and she has no medication at home. She's been vomiting. There's been no blood. She denies any melena or hematochezia. Denies at this time. The pain is severe constant epigastric radiating to her chest to her back. Rated 10/10, constant, burning. Has been treated for abdominal pain in past. Also prior h/o pyelo and UTI, most recently 10/20. No dysuria, hematuria. No fevers, cough, back pain, joint pain. Allergies: Coded Allergies: PENICILLINS (Unverified Allergy, Unknown, 04/19/14) RIFAMPIN (Unverified Allergy, Unknown, 04/19/14) SULFAMETHOXAZOLE (Unverified Allergy, Unknown, 04/19/14) TRIMETHOPRIM (Unverified Allergy, Unknown, 04/19/14) Patient History Past Medical History: see triage record, old chart reviewed Social History: Reports: drug use - amphetamine in past, Denies: alcohol use Social History Narrative longterm Reviewed Nursing Documentation: PMH: Agreed, PSxH: Agreed Nursing Documentation-PMH Hx Cardiac Problems: No Hx Hypertension: No Hx Pacemaker: No Hx Asthma: No Hx COPD: No Hx Diabetes: No Hx Cancer: No Hx Gastrointestinal Problems: Yes - CHOLECYSTECTOMY Hx Dialysis: No Hx Neurological Problems: No Hx Cerebrovascular Accident: Yes - stroke 01/25 Hx Seizures: No Review of Systems All Other Systems: negative except mentioned in HPI Physical Exam Vital Signs Date Time Temp Pulse Resp B/P (MAP) Pulse Ox O2 Delivery O2 Flow Rate FiO2 11/09/17 11:02 97.7 115 20 128/92 97 Room Air Sp02 EP Interpretation: reviewed, normal General Appearance: well appearing, GCS 15, moderate distress Head: normocephalic Eyes: bilateral eye normal inspection, bilateral eye PERRL ENT: moist mucus membranes Neck: supple Respiratory: lungs clear, normal breath sounds Cardiovascular #1: regular rate, rhythm Cardiovascular #2: 2+ radial (R) Gastrointestinal: normal inspection, normal bowel sounds, no mass, non- distended, no rebound, guarding - voluntary- minimal, tenderness - epigastric Musculoskeletal: back normal, gait/station normal, normal range of motion Neurologic: alert, oriented x3, grossly normal Psychiatric: anxious Skin: warm/dry, rash - macular side of abdomen Medical Decision Making Diagnostic Impression: Primary Impression: Abdominal pain Qualified Codes: R10.13 - Epigastric pain Additional Impression: Pyuria ER Course Patient with epigastric pain with recent endoscopy. Ddx: gastritis, GERD, PUD, pancreatitis. No h/o bleeding or fever. Needs eval with labs. Treatment with IV hydration, analgesia, zofran and pepcid. Patient with instructions to RN to push analgesic without dilution. Labs unremarkable (K slightly low). Patient required multiple doses of analgesics. Still c/o pain. Ativan and po helped. Improved but still c/o pain. Discussed need for outpatient treatment and expectation that with meds, pain would be controlled. Patient stable for outpatient observation and treatment. (UA late return - will call if culture +. No urinary symptoms.) Laboratory Tests Test 11/09/17 11:50 White Blood Count 5.6 K/UL (4.8-10.8) Red Blood Count 4.67 M/UL (4.20-5.40) Hemoglobin 11.7 G/DL (12.0-16.0) L Hematocrit 38.5 % (37.0-47.0) Mean Corpuscular Volume 82 FL (80-99) Mean Corpuscular Hemoglobin 25.1 PG (27.0-31.0) L Mean Corpuscular Hemoglobin Concent 30.5 G/DL (32.0-36.0) L Red Cell Distribution Width 17.8 % (11.6-14.8) H Platelet Count 249 K/UL (150-450) Mean Platelet Volume 7.6 FL (6.5-10.1) Neutrophils (%) (Auto) 72.2 % (45.0-75.0) Lymphocytes (%) (Auto) 12.5 % (20.0-45.0) L Monocytes (%) (Auto) 12.2 % (1.0-10.0) H Eosinophils (%) (Auto) 2.3 % (0.0-3.0) Basophils (%) (Auto) 0.9 % (0.0-2.0) Urine Color Yellow Urine Appearance Turbid Urine pH 6.5 (4.5-8.0) Urine Specific [place] 1.020 (1.005-1.035) Urine Protein 3+ (NEGATIVE) H Urine Glucose (UA) Negative (NEGATIVE) Urine Ketones 1+ (NEGATIVE) H Urine Occult Blood 1+ (NEGATIVE) H Urine Nitrite Positive (NEGATIVE) H Urine Bilirubin 2+ (NEGATIVE) H Urine Ictotest Negative Urine Urobilinogen 8 MG/DL (0.0-1.0) H Urine Leukocyte Esterase 3+ (NEGATIVE) H Urine RBC 0-2 /HPF (0 - 2) Urine WBC 10-15 /HPF (0 - 2) H Urine Squamous Epithelial Cells Many /LPF (NONE/OCC) H Urine Calcium Oxalate Crystals Moderate /LPF (NONE) Urine Bacteria Few /HPF (NONE) Sodium Level 142 MMOL/L (136-145) Potassium Level 3.2 MMOL/L (3.5-5.1) L Chloride Level 107 MMOL/L (98-107) Carbon Dioxide Level 26 MMOL/L (21-32) Anion Gap 9 mmol/L (5-15) Blood Urea Nitrogen 10 mg/dL (7-18) Creatinine 0.6 MG/DL (0.55-1.30) Estimate Glomerular Filtration Rate > 60 mL/min (>60) Glucose Level 79 MG/DL (74-106) Calcium Level 9.0 MG/DL (8.5-10.1) Total Bilirubin 0.5 MG/DL (0.2-1.0) Aspartate Amino Transferase (AST) 17 U/L (15-37) Alanine Aminotransferase (ALT) 19 U/L (12-78) Alkaline Phosphatase 73 U/L (46-116) Total Protein 7.6 G/DL (6.4-8.2) Albumin 4.0 G/DL (3.4-5.0) Globulin 3.6 g/dL Albumin/Globulin Ratio 1.1 (1.0-2.7) Lipase 109 U/L (73-393) Last Vital Signs Date Time Temp Pulse Resp B/P (MAP) Pulse Ox O2 Delivery O2 Flow Rate FiO2 11/09/17 17:05 97.7 89 16 113/55 100 Room Air Status: improved Disposition: HOME, SELF-CARE Condition: Improved Scripts Acetaminophen (Tylenol) 325 Mg Tablet 650 MG ORAL Q6H Y for Prn Pain/Headache/Temp > 101, #20 TAB 0 Refills Prov: Jaden Gallagher M.D. 11/09/17 Ondansetron Odt* (ZOFRAN ODT*) 4 Mg Tab.rapdis 4 MG ORAL Q8H Y for Nausea & Vomiting, #6 TAB 1 Refill Prov: Jaden Gallagher M.D. 11/09/17 Mag Hydrox/Al Hydrox/Simeth (MAALOX MAXIMUM STRENGTH SUSP) 355 Ml Oral.susp 30 ML PO Q6HR for abdominal pain, #240 ML Prov: Jaden Gallagher M.D. 11/09/17 Hydrocodone Bit/Acetaminophen 5-325* (NORCO 5-325*) 1 Each Tablet 1 TAB ORAL Q6H Y for For Pain, #14 TAB 0 Refills Prov: Jaden Gallagher M.D. 11/09/17 Famotidine (PEPCID) 20 Mg Tablet 20 MG ORAL DAILY, #30 TAB 0 Refills Prov: Jaden Gallagher M.D. 11/09/17 Referrals: [facility],REFERRING (PCP) Jaden Gallagher M.D. Nov 09, 2017 16:10
[2017-11-09] MEDS ORDERED: TYLENOL325 MG ORAL (16:13)
[2017-11-09] MEDS ORDERED: MAALOX MAXIMUM355 M1 PO (16:13)
[2017-11-09] MEDS ORDERED: ZOFRAN ODT4 MG ORAL (16:13)
[2017-11-09] MEDS ORDERED: PEPCID20 MG ORAL (16:13)
[2017-11-09] MEDS ORDERED: NORCO 5-325 TA1 EACH ORAL (16:13)
[2017-11-09 17:05] VITALS: BP 113/55
== END 2017-11-09 17:05 | disposition home or self-care (01) ==
LOC: EMR 11:56
DX: R10.13 Epigastric pain (principal); N39.0 Urinary tract infection, site not specified; R21 Rash and other nonspecific skin eruption; Z90.49 Acquired absence of other specified parts of digestive tract; Z88.0 Allergy status to penicillin; Z88.8 Allergy status to other drugs, medicaments and biological substances; Z88.2 Allergy status to sulfonamides; Z86.73 Personal history of transient ischemic attack (TIA), and cerebral infarction without residual deficits
CPT/HCPCS: 36415; 80053; 81003; 83690; 85025; 87086; 96361; 96365; 96375; 96376; 99284; J0696; J1170; J1200; J2270; J2405; S0028

== ENCOUNTER 2017-11-13 16:41 | Emergency (ER) | payer OTHER ==
[~2017-11-13] VITALS: Ht 167.6 cm; Wt 64.0 kg
[~2017-11-13 16:41] MED LIST changes: +MAALOX MAXIMUM355 M1 PO; +NORCO 5-325 TA1 EACH ORAL; +PEPCID20 MG ORAL; +TYLENOL325 MG ORAL; +ZOFRAN ODT4 MG ORAL
[2017-11-13] MEDS ORDERED: UNOBMED (17:06)
[2017-11-13] MEDS ORDERED: Morphine Sulfate 4mg/ml Inj IVP ONE (17:30)
[2017-11-13] MEDS ORDERED: DiphenhydrAMINE 25mg/10ml Elixir ORAL ONE (18:00)
[2017-11-13 18:28] LABS: APPEARANCE,URINE CLOUDY; BILIRUBIN, URINE NEGATIVE (NEGATIVE); GLUCOSE, URINE (UA) NEGATIVE (NEGATIVE); KETONES,URINE NEGATIVE (NEGATIVE); LEUKOCYTE ESTERASE ,URINE 3+ (NEGATIVE); NITRITE,URINE NEGATIVE (NEGATIVE); PH,URINE 6 (4.5-8.0); PROTEIN,URINE 2+ (NEGATIVE); UROBILINOGEN,URINE 4 MG/DL (0.0-1.0)
[2017-11-13] MEDS ORDERED: Ketorolac 30mg Inj IV ONE (18:30)
[2017-11-13] MEDS ORDERED: Lidocaine 2% Visc 15ml soln ORAL ONE (18:30)
[2017-11-13] MEDS ORDERED: Mylanta II UD 30ml ORAL ONE (18:30)
--- NOTE | 2017-11-13 18:33 | Emergency Room Report ---
History of Present Illness General Chief Complaint: Abdominal Pain Source: Patient Present Illness HPI Pt. presents to the ED c/o 07/20 in severity Abdominal pain with nausea, vomiting and diarrhea x2 days. Patient reports recent exacerbations of colitis and she has seen a GI specialist earlier this week and was placed on clindamycin and Flagyl. She reports that she was not given any medications for her pain. Patient denies fevers or chills she reports difficulty with oral intake. Denies dysuria, frequency, urgency or hematuria she denies blood in the vomit or stool or black tarry stools.Denies CP, Palpitations, LOC, AMS, dizziness, Changes in Vision, Sensation, paresthesias, or a sudden severe headache. Allergies: Coded Allergies: PENICILLINS (Unverified Allergy, Unknown, 04/19/14) RIFAMPIN (Unverified Allergy, Unknown, 04/19/14) SULFAMETHOXAZOLE (Unverified Allergy, Unknown, 04/19/14) TRIMETHOPRIM (Unverified Allergy, Unknown, 04/19/14) Patient History Past Medical History: see triage record Past Surgical History: none Pertinent Family History: none Last Menstrual Period: Depoprovera Now: No Reviewed Nursing Documentation: PMH: Agreed, PSxH: Agreed Nursing Documentation-PMH Hx Cardiac Problems: No Hx Hypertension: No Hx Pacemaker: No Hx Asthma: No Hx COPD: No Hx Diabetes: No Hx Cancer: No Hx Gastrointestinal Problems: Yes - CHOLECYSTECTOMY . Ovarian torsion x2. Hx Dialysis: No Hx Neurological Problems: No Hx Cerebrovascular Accident: Yes - stroke 01/25 Hx Seizures: No Review of Systems All Other Systems: negative except mentioned in HPI Physical Exam Vital Signs Date Time Temp Pulse Resp B/P (MAP) Pulse Ox O2 Delivery O2 Flow Rate FiO2 11/13/17 17:02 98.1 110 22 123/67 96 Room Air Sp02 EP Interpretation: reviewed, normal General Appearance: no apparent distress, alert, GCS 15, non-toxic Head: normocephalic, atraumatic Eyes: bilateral eye normal inspection, bilateral eye PERRL ENT: hearing grossly normal, normal voice Neck: full range of motion Respiratory: lungs clear, normal breath sounds, speaking full sentences Cardiovascular #1: regular rate, rhythm, tachycardia Gastrointestinal: normal bowel sounds, soft, tenderness - epigastric TTP, abdomen soft no peritoneal signs. Rectal: deferred Genitourinary: normal inspection Musculoskeletal: back normal, gait/station normal, normal range of motion, non- tender Neurologic: alert, oriented x3, responsive, motor strength/tone normal, sensory intact, speech normal, grossly normal Psychiatric: judgement/insight normal Skin: normal color, no rash, warm/dry, well hydrated Medical Decision Making PA Attestation Dr. Barber is my supervising Physician whom patient management has been discussed with. Diagnostic Impression: Primary Impression: Abdominal pain Qualified Codes: R10.84 - Generalized abdominal pain Additional Impressions: UTI (lower urinary tract infection) Dehydration, mild ER Course Pt. presents to the ED c/o 07/20 in severity Abdominal pain with nausea, vomiting and diarrhea x2 days. Patient reports recent exacerbations of colitis and she has seen a GI specialist earlier this week and was placed on clindamycin and Flagyl. She reports that she was not given any medications for her pain. Patient denies fevers or chills she reports difficulty with oral intake. Denies dysuria, frequency, urgency or hematuria she denies blood in the vomit or stool or black tarry stools.Denies CP, Palpitations, LOC, AMS, dizziness, Changes in Vision, Sensation, paresthesias, or a sudden severe headache. Ddx considered but are not limited to Diverticulitis, acute appy, diarrhea,UC, PUD, GE, pancreatitis, gallstone Vital signs: Tachycardic in triage remaining VS are WNL, pt. is afebrile H&PE are most consistent with Nausea/vomiting with hx of Colitis and recent GI eval. ORDERS: Blood work was deferred as pt. had unremarkable blood work here in the ED 5 days ago with similar symptoms. -pt. was noted to have multiple complaints of pain at last visit which is again consistent this visit. UA: Evidence of infection. -Urine Hcg: Negative ED INTERVENTIONS: -- 1000NS -Zofran 4 mg IV -Morphine IV -Toradol IV -Pepcid -Pt. had no observed episodes of vomiting while in ED. able to tolerate Oral Meds. -HR improved after fluids. - Given non-toxic in appearance, afebrile, able to keep down oral intake, recent diagnosis of colitis, and on abx I feel this pt. is stable for GI Follow up. Pt. given ED return precautions for worsening or new symptoms. will be d/c home with anti-emetic, Macrobid ( for UTI) and [place] DISCHARGE: At this time pt. is stable for d/c to home. Will provide printed patient care instructions, and any necessary prescriptions. Care plan and follow up instructions have been discussed with the patient prior to discharge. Labs Test 11/13/17 17:30 Urine Color Yellow Urine Appearance Cloudy Urine pH 6 (4.5-8.0) Urine Specific [place] 1.025 (1.005-1.035) Urine Protein 2+ (NEGATIVE) Urine Glucose (UA) Negative (NEGATIVE) Urine Ketones Negative (NEGATIVE) Urine Occult Blood Negative (NEGATIVE) Urine Nitrite Negative (NEGATIVE) Urine Bilirubin Negative (NEGATIVE) Urine Urobilinogen 4 MG/DL (0.0-1.0) Urine Leukocyte Esterase 3+ (NEGATIVE) Urine RBC 0 /HPF (0 - 2) Urine WBC 15-20 /HPF (0 - 2) Urine Squamous Epithelial Cells Moderate /LPF (NONE/OCC) Urine Bacteria Moderate /HPF (NONE) Urine HCG, Qualitative Negative Last Vital Signs Date Time Temp Pulse Resp B/P (MAP) Pulse Ox O2 Delivery O2 Flow Rate FiO2 11/13/17 17:02 98.1 110 22 123/67 96 Room Air Disposition: HOME, SELF-CARE Condition: Stable Scripts Mag Hydrox/Al Hydrox/Simeth (ALUM-MAG HYDROXIDE-SIMETH LIQ) 360 Ml Oral.susp 20 ML PO BID, #360 ML Prov: Bree Richter.ABora 11/13/17 Ondansetron Odt* (ZOFRAN ODT*) 4 Mg Tab.rapdis 4 MG ORAL Q6H Y for Nausea & Vomiting, #15 TAB Prov: Bree RichterA. 11/13/17 Nitrofurantoin Monohyd/M-Cryst* (MACROBID 100 MG*) 100 Mg Capsule 100 MG ORAL EVERY 12 HOURS for 5 Days, #10 CAP Prov: Bree Richter 11/13/17 Referrals: [facility],REFERR[facility] (PCP) Patient Instructions: Urinary Tract Infection, Abdominal Pain, Adult Additional Instructions: Take medications as directed. Follow up with a Primary Care Provider in 3-5 days, even if your symptoms have resolved. --Please review list of primary care clinics, if you do not already have a primary care provider Return sooner to ED if new symptoms occur, or current symptoms become worse. - Please note that this Emergency Department Report was dictated using [employer] supervisor technology software, occasionally this can lead to erroneous entry secondary to interpretation by the dictation equipment. Bree Richter Nov 13, 2017 18:33
[2017-11-13 18:39] LABS: COLOR,URINE YELLOW
[2017-11-13 18:51] VITALS: BP 130/78
[2017-11-13] MEDS ORDERED: ALUM-MAG HYDRO360 ML PO (19:49)
[2017-11-13] MEDS ORDERED: NITROFURANTOIN100 M2 ORAL (19:49)
[2017-11-13] MEDS ORDERED: ZOFRAN ODT4 MG ORAL (19:49)
[2017-11-13 20:22] VITALS: BP 1/1
[2017-11-25] MEDS ORDERED: CLINDAMYCIN HC150 MG ORAL (02:19)
[2017-11-25] MEDS ORDERED: NAPROSYN500 M1 ORAL (04:10)
[2017-11-28] MEDS ORDERED: NITROFURANTOIN100 M2 ORAL (09:28)
== END 2017-11-13 20:10 | disposition home or self-care (01) ==
LOC: EMR 18:32
DX: R10.9 Unspecified abdominal pain (principal); R11.2 Nausea with vomiting, unspecified; N39.0 Urinary tract infection, site not specified; E86.0 Dehydration; Z90.49 Acquired absence of other specified parts of digestive tract; Z88.0 Allergy status to penicillin; Z88.2 Allergy status to sulfonamides
CPT/HCPCS: 81003; 81025; 87086; 96361; 96374; 96375; 99284; J1885; J2270; J2405

== ENCOUNTER 2017-11-18 09:59 | Emergency (ER) | payer OTHER ==
[~2017-11-18] VITALS: Ht 167.6 cm; Wt 64.0 kg
[~2017-11-18 09:59] MED LIST changes: +ALUM-MAG HYDRO360 ML PO; +UNOBMED
[2017-11-18 10:11] VITALS: BP 108/79
[2017-11-18] MEDS ORDERED: Tylenol #3 tab (300mg/30mg) ORAL ONE (11:15)
[2017-11-18] MEDS ORDERED: Morphine Sulfate 4mg/ml Inj IM ONE (12:00)
[2017-11-18 12:04] LABS: APPEARANCE,URINE CLEAR; BILIRUBIN, URINE NEGATIVE (NEGATIVE); GLUCOSE, URINE (UA) NEGATIVE (NEGATIVE); KETONES,URINE 1+ (NEGATIVE); LEUKOCYTE ESTERASE ,URINE 3+ (NEGATIVE); NITRITE,URINE NEGATIVE (NEGATIVE); PH,URINE 5 (4.5-8.0); PROTEIN,URINE 2+ (NEGATIVE); UROBILINOGEN,URINE 1 MG/DL (0.0-1.0)
[2017-11-18] MEDS ORDERED: REGLAN10 MG ORAL (12:09)
[2017-11-18] MEDS ORDERED: BENTYL10 MG ORAL (12:09)
[2017-11-18 12:12] LABS: BASOPHILS % (AUTO) 0.8 % (0.0-2.0); EOSINOPHILS % (AUTO) 0.8 % (0.0-3.0); HEMATOCRIT 37.9 % (37.0-47.0); HEMOGLOBIN 12.4 G/DL (12.0-16.0); LYMPHOCYTES % (AUTO) 11.7 % (20.0-45.0); MEAN CORPUSCULAR VOLUME 82 FL (80-99); MONOCYTES % (AUTO) 6.7 % (1.0-10.0); PLATELET COUNT 206 K/UL (150-450); RED BLOOD COUNT 4.61 M/UL (4.20-5.40); WHITE BLOOD COUNT 9.1 K/UL (4.8-10.8)
[2017-11-18 12:17] LABS: COLOR,URINE YELLOW
[2017-11-18 12:20] LABS: ANION GAP 11 mmol/L (5-15); BLOOD UREA NITROGEN 8 mg/dL (7-18); CALCIUM 9.2 MG/DL (8.5-10.1); CARBON DIOXIDE 23 MMOL/L (21-32); CHLORIDE 104 MMOL/L (98-107); CREATININE 0.6 MG/DL (0.55-1.30); POTASSIUM 3.6 MMOL/L (3.5-5.1); SODIUM 138 MMOL/L (136-145)
[2017-11-18 12:25] VITALS: BP 108/79
[2017-11-18 12:25] LABS: ALANINE AMINOTRANSFERASE 18 U/L (12-78); ALBUMIN 3.9 G/DL (3.4-5.0); ALKALINE PHOSPHATASE 81 U/L (46-116); ASPARTATE AMINO TRANSFERASE 19 U/L (15-37); BILIRUBIN,TOTAL 0.3 MG/DL (0.2-1.0)
--- NOTE | 2017-11-19 09:03 | Emergency Room Report ---
History of Present Illness General Chief Complaint: Abdominal Pain Source: Patient Present Illness HPI Patient presents with complaints of diffuse abdominal pain Upon arrival the patient is a fairly histrionic Yelling and screaming Patient has 10 out of 10 pain diffuse cannot localize the pain Reports that she was recently seen by vehicle refinisher and given antibiotics for possible infection Denies any fevers denies any diarrhea Denies any recent trauma Allergies: Coded Allergies: PENICILLINS (Unverified Allergy, Unknown, 04/19/14) RIFAMPIN (Unverified Allergy, Unknown, 04/19/14) SULFAMETHOXAZOLE (Unverified Allergy, Unknown, 04/19/14) TRIMETHOPRIM (Unverified Allergy, Unknown, 04/19/14) Patient History Past Medical History: see triage record Pertinent Family History: none Last Menstrual Period: depo shot Now: No Reviewed Nursing Documentation: PMH: Agreed, PSxH: Agreed Nursing Documentation-PMH Past Medical History: No History, Except For Hx Cardiac Problems: No Hx Hypertension: No Hx Pacemaker: No Hx Asthma: No Hx COPD: No Hx Diabetes: No Hx Cancer: No Hx Gastrointestinal Problems: Yes - CHOLECYSTECTOMY . Ovarian torsion x2. Hx Dialysis: No Hx Neurological Problems: No Hx Cerebrovascular Accident: Yes - TIA Hx Seizures: No Review of Systems All Other Systems: negative except mentioned in HPI Physical Exam Vital Signs Date Time Temp Pulse Resp B/P (MAP) Pulse Ox O2 Delivery O2 Flow Rate FiO2 11/18/17 10:02 97.7 91 20 106/78 99 Room Air Sp02 EP Interpretation: reviewed, normal General Appearance: mild distress - Fairly histrionic yelling screaming Head: normocephalic, atraumatic Eyes: bilateral eye PERRL, bilateral eye EOMI ENT: hearing grossly normal, normal pharynx, TMs + canals normal, uvula midline Neck: full range of motion, supple, no meningismus, no bony tend Respiratory: lungs clear, normal breath sounds, no rhonchi, no respiratory distress, no retraction, no accessory muscle use Cardiovascular #1: normal peripheral pulses, regular rate, rhythm, no edema, no gallop, no JVD, no murmur Gastrointestinal: normal bowel sounds, non tender - However subjectively points mainly to the epigastric region, soft, no mass, no organomegaly, non- distended, no guarding, no hernia, no pulsatile mass, no rebound Genitourinary: no CVA tenderness Musculoskeletal: normal inspection Neurologic: oriented x3, responsive, melter supervisor oxygen furnace III-XII nml as tested, motor strength/ tone normal, sensory intact Psychiatric: mood/affect normal Skin: normal color, no rash, warm/dry, palpation normal Lymphatic: normal inspection, no adenopathy Medical Decision Making Diagnostic Impression: Primary Impression: abdominal pain ER Course With the patient's history and examination, multiple differentials considered, including but not limited to , ectopic , ovarian torsion, gastritis, cholecystitis, pancreatitis, appendicitis Review of previous presentation reveals patient has mentioned similar GI specialty consultation recently With antibiotic coverage on multiple recent visits Patient did have acute intervention with pain medication After verbalization of receiving morphine patient now is observed walking without any acute distress appears calm and comfortable prior to receiving medication Patient's presentation is concerning She reports that she's receiving Dilaudid from outpatient facility And is recommended to follow closely Labs Test 11/18/17 10:07 11/18/17 11:23 Urine Color Yellow Urine Appearance Clear Urine pH 5 (4.5-8.0) Urine Specific [place] 1.020 (1.005-1.035) Urine Protein 2+ (NEGATIVE) Urine Glucose (UA) Negative (NEGATIVE) Urine Ketones 1+ (NEGATIVE) Urine Occult Blood 1+ (NEGATIVE) Urine Nitrite Negative (NEGATIVE) Urine Bilirubin Negative (NEGATIVE) Urine Urobilinogen 1 MG/DL (0.0-1.0) Urine Leukocyte Esterase 3+ (NEGATIVE) Urine RBC 2-4 /HPF (0 - 2) Urine WBC 5-10 /HPF (0 - 2) Urine Squamous Epithelial Cells Moderate /LPF (NONE/OCC) Urine Bacteria Few /HPF (NONE) Urine Mucus Few /LPF (NONE/OCC) Urine HCG, Qualitative Negative White Blood Count 9.1 K/UL (4.8-10.8) Red Blood Count 4.61 M/UL (4.20-5.40) Hemoglobin 12.4 G/DL (12.0-16.0) Hematocrit 37.9 % (37.0-47.0) Mean Corpuscular Volume 82 FL (80-99) Mean Corpuscular Hemoglobin 26.9 PG (27.0-31.0) Mean Corpuscular Hemoglobin Concent 32.7 G/DL (32.0-36.0) Red Cell Distribution Width 18.0 % (11.6-14.8) Platelet Count 206 K/UL (150-450) Mean Platelet Volume 10.0 FL (6.5-10.1) Neutrophils (%) (Auto) 80.0 % (45.0-75.0) Lymphocytes (%) (Auto) 11.7 % (20.0-45.0) Monocytes (%) (Auto) 6.7 % (1.0-10.0) Eosinophils (%) (Auto) 0.8 % (0.0-3.0) Basophils (%) (Auto) 0.8 % (0.0-2.0) Sodium Level 138 MMOL/L (136-145) Potassium Level 3.6 MMOL/L (3.5-5.1) Chloride Level 104 MMOL/L (98-107) Carbon Dioxide Level 23 MMOL/L (21-32) Anion Gap 11 mmol/L (5-15) Blood Urea Nitrogen 8 mg/dL (7-18) Creatinine 0.6 MG/DL (0.55-1.30) Estimat Glomerular Filtration Rate > 60 mL/min (>60) Glucose Level 90 MG/DL (74-106) Calcium Level 9.2 MG/DL (8.5-10.1) Total Bilirubin 0.3 MG/DL (0.2-1.0) Aspartate Amino Transf (AST/SGOT) 19 U/L (15-37) Alanine Aminotransferase (ALT/SGPT) 18 U/L (12-78) Alkaline Phosphatase 81 U/L (46-116) Total Protein 7.8 G/DL (6.4-8.2) Albumin 3.9 G/DL (3.4-5.0) Globulin 3.9 g/dL Albumin/Globulin Ratio 1.0 (1.0-2.7) Last Vital Signs Date Time Temp Pulse Resp B/P (MAP) Pulse Ox O2 Delivery O2 Flow Rate FiO2 11/18/17 12:25 97.7 79 21 108/79 99 Room Air Status: improved Disposition: HOME, SELF-CARE Condition: Improved Scripts Dicyclomine Hcl* (BENTYL*) 10 Mg Capsule 10 MG ORAL TID, #10 CAP Prov: AIRAM ALEXIS D.O. 11/18/17 Metoclopramide Hcl* (REGLAN*) 10 Mg Tablet 10 MG ORAL THREE TIMES A DAY for 12 Days, TAB Prov: AIRAM ALEXIS D.O. 11/18/17 Referrals: [facility],REFERR[facility] (PCP) Patient Instructions: Abdominal Pain, Adult Additional Instructions: Patient is provided with the discharge instructions notified to follow up with primary doctor in the next 2-3 days otherwise return to the er with any worsening symptoms. Please note that this report is being documented using [employer] technology. This can lead to erroneous entry secondary to incorrect interpretation by the dictating instrument. AIRAM ALEXIS D.O. Nov 19, 2017 09:03
[2017-11-25] MEDS ORDERED: CLINDAMYCIN HC150 MG ORAL (02:19)
[2017-11-25] MEDS ORDERED: NAPROSYN500 M1 ORAL (04:10)
[2017-11-28] MEDS ORDERED: NITROFURANTOIN100 M2 ORAL (09:28)
== END 2017-11-18 12:25 | disposition home or self-care (01) ==
LOC: EMR 10:24
DX: R10.9 Unspecified abdominal pain (principal); Z90.49 Acquired absence of other specified parts of digestive tract; Z86.73 Personal history of transient ischemic attack (TIA), and cerebral infarction without residual deficits; Z88.0 Allergy status to penicillin; Z88.2 Allergy status to sulfonamides
CPT/HCPCS: 36415; 80053; 81003; 81025; 85025; 96372; 99284; J2270

== ENCOUNTER → 2017-11-25 | Emergency (ER) | payer OTHER ==
[~2017-11-25] VITALS: Ht 167.6 cm; Wt 64.0 kg
[~2017-11-25] MED LIST changes: +BENTYL10 MG ORAL; +CLINDAMYCIN HC150 MG ORAL; +Morphine Sulfate 4mg/ml Inj IM ONE; +NAPROSYN500 M1 ORAL; +REGLAN10 MG ORAL
[2017-11-25 02:57] VITALS: BP 107/54
[2017-11-25 03:29] LABS: APPEARANCE,URINE CLEAR; BILIRUBIN, URINE NEGATIVE (NEGATIVE); GLUCOSE, URINE (UA) NEGATIVE (NEGATIVE); KETONES,URINE NEGATIVE (NEGATIVE); LEUKOCYTE ESTERASE ,URINE 2+ (NEGATIVE); NITRITE,URINE NEGATIVE (NEGATIVE); PH,URINE 6 (4.5-8.0); PROTEIN,URINE NEGATIVE (NEGATIVE); UROBILINOGEN,URINE 1 MG/DL (0.0-1.0)
--- NOTE | 2017-11-25 03:31 | Emergency Room Report ---
History of Present Illness General Chief Complaint: Abdominal Pain Source: Patient Present Illness HPI Is a 22-year-old female with a history of chronic abdominal pain. She's been here numerous times her ready. She had a gallbladder removed and it did not help. She presents with chief complaint of abdominal pain that been ongoing for several days. Has nausea and vomiting but no diarrhea. Pain is 10 out of 10. Said that she normally get a lot of for pain. No other complaint. Was recently here last week. She said that she has to go to the hospital frequently. Nothing made it better. Nothing made it worse. Allergies: Coded Allergies: PENICILLINS (Unverified Allergy, Unknown, 04/19/14) RIFAMPIN (Unverified Allergy, Unknown, 04/19/14) SULFAMETHOXAZOLE (Unverified Allergy, Unknown, 04/19/14) TRIMETHOPRIM (Unverified Allergy, Unknown, 04/19/14) Patient History Past Medical History: see triage record, old chart reviewed Past Surgical History: freedom Pertinent Family History: none Last Menstrual Period: Unknown Now: No - Depo : 1 Para: 1 Immunizations: other Reviewed Nursing Documentation: PMH: Agreed, PSxH: Agreed Nursing Documentation-PMH Hx Cardiac Problems: Yes - TIA Hx Hypertension: No Hx Pacemaker: No Hx Asthma: No Hx COPD: No Hx Diabetes: No Hx Cancer: No Hx Dialysis: No Hx Neurological Problems: No Hx Cerebrovascular Accident: Yes - TIA Hx Seizures: No Review of Systems Eye: Denies: eye pain, blurred vision ENT: Denies: ear pain, nose congestion, throat swelling Respiratory: Denies: cough, shortness of breath Cardiovascular: Denies: chest pain, palpitations Gastrointestinal: Reports: abdominal pain, nausea, vomiting, Denies: diarrhea Musculoskeletal: Denies: back pain, joint pain Skin: Denies: rash Neurological: Denies: headache, numbness Endocrine: Denies: increased thirst, increased urine Hematologic/Lymphatic: Denies: easy bruising All Other Systems: negative except mentioned in HPI Physical Exam Vital Signs Date Time Temp Pulse Resp B/P (MAP) Pulse Ox O2 Delivery O2 Flow Rate FiO2 11/25/17 02:15 97.8 116 18 97/64 95 Room Air 97.9 vitals with tachycardia Sp02 EP Interpretation: reviewed, normal General Appearance: well appearing, no apparent distress, alert, other - Patient is very histrionic. She was walking to room without a problem. She got there she started yelling and crying. No tears however. Head: normocephalic, atraumatic Eyes: bilateral eye PERRL, bilateral eye EOMI ENT: hearing grossly normal, normal pharynx Neck: full range of motion, supple, no meningismus Respiratory: chest non-tender, lungs clear, normal breath sounds Cardiovascular #1: regular rate, rhythm - Heart rate 72, no murmur Gastrointestinal: normal bowel sounds, no mass, no organomegaly, no bruit, non- distended, tenderness - Soft, diffuse tenderness. No guarding or rebound. Normal bowel sounds. Musculoskeletal: back normal, gait/station normal, normal range of motion Neurologic: alert, oriented x3 Psychiatric: mood/affect normal Skin: warm/dry Medical Decision Making Diagnostic Impression: Primary Impression: Abdominal pain Qualified Codes: R10.84 - Generalized abdominal pain Additional Impression: Chronic pain Qualified Codes: G89.4 - Chronic pain syndrome ER Course Patient presents with abdominal pain and vomiting. This is a chronic issue and I suspect a strong drug seeking component. She keep asking for Dilaudid. She told me that she's not any pain medication but she is opiate her urine. There is no ketones in the urine. She has no vomiting she she's been here. We'll discharge home. I see no need for further workup since recent blood work and CT scan unremarkable. Last Vital Signs Date Time Temp Pulse Resp B/P (MAP) Pulse Ox O2 Delivery O2 Flow Rate FiO2 11/25/17 02:57 18 107/54 95 Room Air 11/25/17 02:52 97.8 11/25/17 02:15 116 Status: improved Disposition: HOME, SELF-CARE Condition: Stable Scripts Naproxen* (NAPROSYN*) 500 Mg Tablet 500 MG ORAL TWICE A DAY, #30 TAB Prov: JAVID TREJO M.D. 11/25/17 Referrals: [facility]/,REFERRING (PCP) Patient Instructions: Abdominal Pain, Adult Additional Instructions: Followup with your DrBora in 7 days. Return if symptom worsen. JAVID TREJO M.D. Nov 25, 2017 03:31
[2017-11-25 03:40] LABS: COLOR,URINE YELLOW
[2017-11-25 04:18] VITALS: BP 107/54
== END | disposition home or self-care (01) ==
LOC: EMR 02:55
DX: R10.9 Unspecified abdominal pain (principal); G89.29 Other chronic pain; Z88.0 Allergy status to penicillin; Z88.2 Allergy status to sulfonamides; Z86.73 Personal history of transient ischemic attack (TIA), and cerebral infarction without residual deficits
CPT/HCPCS: 80307; 81003; 81025; 87086; 87181; 96372; 99284; J2270; J2550

== ENCOUNTER 2017-12-06 08:29 | Emergency (ER) | payer MEDICAID, OTHER ==
[~2017-12-06] VITALS: Ht 167.6 cm; Wt 64.0 kg
[~2017-12-06 08:29] MED LIST changes: -Morphine Sulfate 4mg/ml Inj IM ONE
[2017-12-06 08:45] VITALS: BP 106/64
--- NOTE | 2017-12-06 08:56 | Emergency Room Report ---
History of Present Illness General Chief Complaint: Abdominal Pain Source: Patient Present Illness HPI 22-year-old female, history of chronic pain, p/w nausea vomiting diarrhea and abdominal pain for 2 weeks. Patient states that she has had this abdominal pain multiple times in the past. She has been to the emergency room multiple times in the past as well. Pt reports n/v, more than 5 episodes of nbnb vomiting, more than 5 episodes of watery non bloody diarrhea Denies fever, chills. Allergies: Coded Allergies: PENICILLINS (Unverified Allergy, Unknown, 04/19/14) RIFAMPIN (Unverified Allergy, Unknown, 04/19/14) SULFAMETHOXAZOLE (Unverified Allergy, Unknown, 04/19/14) TRIMETHOPRIM (Unverified Allergy, Unknown, 04/19/14) Patient History Past Medical History: see triage record Past Surgical History: none Pertinent Family History: none Last Menstrual Period: Now Now: No Reviewed Nursing Documentation: PMH: Agreed, PSxH: Agreed Nursing Documentation-PMH Past Medical History: No Stated History Hx Cardiac Problems: Yes - TIA Hx Hypertension: No Hx Pacemaker: No Hx Asthma: No Hx COPD: No Hx Diabetes: No Hx Cancer: No Hx Dialysis: No Hx Neurological Problems: No Hx Cerebrovascular Accident: Yes - TIA Hx Seizures: No Review of Systems All Other Systems: negative except mentioned in HPI Physical Exam Vital Signs Date Time Temp Pulse Resp B/P (MAP) Pulse Ox O2 Delivery O2 Flow Rate FiO2 12/06/17 08:37 97.6 112 16 106/64 99 Room Air 97.5 Sp02 EP Interpretation: reviewed, normal General Appearance: alert, GCS 15, mild distress Head: normocephalic, atraumatic Eyes: bilateral eye normal inspection, bilateral eye PERRL, bilateral eye EOMI ENT: normal ENT inspection, normal pharynx, normal voice, moist mucus membranes Neck: normal inspection, full range of motion, supple Respiratory: normal inspection, lungs clear, normal breath sounds, no respiratory distress, no retraction, no wheezing, speaking full sentences, chest symmetrical Cardiovascular #1: normal inspection, regular rate, rhythm, no edema, normal capillary refill Cardiovascular #2: 2+ radial (R), 2+ radial (L) Gastrointestinal: other - Abdomen is very soft and nontender throughout abdomen , no grimace to deep palpation during interviewing patient, normal bowel sounds , not rigid and no guarding or rrebound Musculoskeletal: normal inspection, back normal, normal range of motion, non- tender Neurologic: normal inspection, alert, oriented x3, responsive, motor strength/ tone normal, sensory intact, normal gait, speech normal Psychiatric: normal inspection, judgement/insight normal, memory normal Skin: normal inspection, normal color, no rash, warm/dry, well hydrated, normal turgor Medical Decision Making Diagnostic Impression: Primary Impression: Abdominal pain Additional Impression: Chronic pain ER Course 22-year-old female, with history of chronic pain, presenting with similar pain, nausea vomiting and diarrhea Differential Diagnosis: Gastritis, gastroenteritis, cholecystitis, appendicitis, diverticulitis, UTI/ pyelo At this time abdomen is soft nontender, not likely to have acute intra- abdominal surgical pathology, will hold CT Plan: Basic labs, ua pain control, IVF ER course: Patient has remained stable during ED stay. given toradol for pain was screaming in pain intermittently and then stopped she is ambulating around the ED. not in pain, nontoxic labs are urnemarkable Disposition: Patient is to be discharged to home. Patient is instructed to follow up with their primary care doctor within 5 days. Please note that this Emergency Department Report was dictated using [employer] girl technology software, occasionally this can lead to erroneous entry secondary to interpretation by the dictation equipment Laboratory Tests Test 12/06/17 08:46 12/06/17 09:05 Urine Color Pale yellow Urine Appearance Clear Urine pH 5 (4.5-8.0) Urine Specific [place] 1.025 (1.005-1.035) Urine Protein Negative (NEGATIVE) Urine Glucose (UA) Negative (NEGATIVE) Urine Ketones Negative (NEGATIVE) Urine Occult Blood Negative (NEGATIVE) Urine Nitrite Negative (NEGATIVE) Urine Bilirubin Negative (NEGATIVE) Urine Urobilinogen Normal MG/DL (0.0-1.0) Urine Leukocyte Esterase 3+ (NEGATIVE) H Urine RBC 0-2 /HPF (0 - 2) Urine WBC 2-4 /HPF (0 - 2) Urine Squamous Epithelial Cells Few /LPF (NONE/OCC) Urine Bacteria None /HPF (NONE) Urine HCG, Qualitative Negative White Blood Count 6.2 K/UL (4.8-10.8) Red Blood Count 5.03 M/UL (4.20-5.40) Hemoglobin 12.9 G/DL (12.0-16.0) Hematocrit 41.3 % (37.0-47.0) Mean Corpuscular Volume 82 FL (80-99) Mean Corpuscular Hemoglobin 25.6 PG (27.0-31.0) L Mean Corpuscular Hemoglobin Concent 31.3 G/DL (32.0-36.0) L Red Cell Distribution Width 16.2 % (11.6-14.8) H Platelet Count 225 K/UL (150-450) Mean Platelet Volume 9.8 FL (6.5-10.1) Neutrophils (%) (Auto) 78.0 % (45.0-75.0) H Lymphocytes (%) (Auto) 15.7 % (20.0-45.0) L Monocytes (%) (Auto) 5.0 % (1.0-10.0) Eosinophils (%) (Auto) 0.7 % (0.0-3.0) Basophils (%) (Auto) 0.6 % (0.0-2.0) Sodium Level 140 MMOL/L (136-145) Potassium Level 3.9 MMOL/L (3.5-5.1) Chloride Level 107 MMOL/L (98-107) Carbon Dioxide Level 24 MMOL/L (21-32) Anion Gap 9 mmol/L (5-15) Blood Urea Nitrogen 11 mg/dL (7-18) Creatinine 0.7 MG/DL (0.55-1.30) Estimate Glomerular Filtration Rate > 60 mL/min (>60) Glucose Level 95 MG/DL (74-106) Calcium Level 9.2 MG/DL (8.5-10.1) Total Bilirubin 0.2 MG/DL (0.2-1.0) Aspartate Amino Transferase (AST) 19 U/L (15-37) Alanine Aminotransferase (ALT) 21 U/L (12-78) Alkaline Phosphatase 83 U/L (46-116) Total Protein 8.3 G/DL (6.4-8.2) H Albumin 4.1 G/DL (3.4-5.0) Globulin 4.2 g/dL Albumin/Globulin Ratio 1.0 (1.0-2.7) Lipase 156 U/L (73-393) Last Vital Signs Date Time Temp Pulse Resp B/P (MAP) Pulse Ox O2 Delivery O2 Flow Rate FiO2 2/26/18 08:45 97.5 16 106/64 99 Room Air 97.5 12/06/17 08:37 112 Disposition: HOME, SELF-CARE Condition: Improved Patient Instructions: Abdominal Pain, Adult Walt Quintana M.D. Dec 06, 2017 08:56
[2017-12-06 09:14] LABS: APPEARANCE,URINE CLEAR; BILIRUBIN, URINE NEGATIVE (NEGATIVE); COLOR,URINE PALE YELLOW; GLUCOSE, URINE (UA) NEGATIVE (NEGATIVE); KETONES,URINE NEGATIVE (NEGATIVE); LEUKOCYTE ESTERASE ,URINE 3+ (NEGATIVE); NITRITE,URINE NEGATIVE (NEGATIVE); PH,URINE 5 (4.5-8.0); PROTEIN,URINE NEGATIVE (NEGATIVE); UROBILINOGEN,URINE NORMAL MG/DL (0.0-1.0)
[2017-12-06 09:37] LABS: BASOPHILS % (AUTO) 0.6 % (0.0-2.0); EOSINOPHILS % (AUTO) 0.7 % (0.0-3.0); HEMATOCRIT 41.3 % (37.0-47.0); HEMOGLOBIN 12.9 G/DL (12.0-16.0); LYMPHOCYTES % (AUTO) 15.7 % (20.0-45.0); MEAN CORPUSCULAR VOLUME 82 FL (80-99); PLATELET COUNT 225 K/UL (150-450); RED BLOOD COUNT 5.03 M/UL (4.20-5.40); RED CELL DISTRIBUTION WIDTH 16.2 % (11.6-14.8); WHITE BLOOD COUNT 6.2 K/UL (4.8-10.8)
[2017-12-06 10:00] LABS: ANION GAP 9 mmol/L (5-15); BLOOD UREA NITROGEN 11 mg/dL (7-18); CALCIUM 9.2 MG/DL (8.5-10.1); CARBON DIOXIDE 24 MMOL/L (21-32); CHLORIDE 107 MMOL/L (98-107); CREATININE 0.7 MG/DL (0.55-1.30); POTASSIUM 3.9 MMOL/L (3.5-5.1); SODIUM 140 MMOL/L (136-145)
[2017-12-06 10:04] LABS: ALANINE AMINOTRANSFERASE 21 U/L (12-78); ALBUMIN 4.1 G/DL (3.4-5.0); ALKALINE PHOSPHATASE 83 U/L (46-116); ASPARTATE AMINO TRANSFERASE 19 U/L (15-37); BILIRUBIN,TOTAL 0.2 MG/DL (0.2-1.0)
[2017-12-06] MEDS ORDERED: Ketorolac 30mg Inj IV ONE (10:15)
[2017-12-06 10:37] VITALS: BP 122/76
[2017-12-06 10:38] VITALS: BP 122/76
== END 2017-12-06 10:39 | disposition home or self-care (01) ==
LOC: EMR 09:21
DX: R10.9 Unspecified abdominal pain (principal); G89.29 Other chronic pain; Z88.0 Allergy status to penicillin; Z88.2 Allergy status to sulfonamides; Z86.73 Personal history of transient ischemic attack (TIA), and cerebral infarction without residual deficits; Z88.8 Allergy status to other drugs, medicaments and biological substances
CPT/HCPCS: 36415; 80053; 81003; 81025; 83690; 85025; 96374; 96375; 99284; J1885; J2405

== ENCOUNTER 2018-01-18 03:50 | Emergency (ER) | payer OTHER ==
[~2018-01-18] VITALS: Ht 167.6 cm; Wt 56.7 kg
[~2018-01-18 03:50] MED LIST changes: +DEPO-ESTRAD5 MG/1 ML IM
[2018-01-18] MEDS ORDERED: Haloperidol Lactate 5 MG in D5W 55 ML IVPB ONE (04:00)
--- NOTE | 2018-01-18 04:07 | Emergency Room Report ---
History of Present Illness General Chief Complaint: Abdominal Pain Source: Patient Present Illness HPI This is a 22-year-old female with history of chronic abdominal pain and drug abuse. She presents with chief complaint abdominal pain. She claimed that she never had abdominal pain before this been ongoing for the last 3 weeks. She saw her primary care doctor who ordered blood work. Has been severe 10 out of 10. Nausea and vomiting. Unable to keep anything down. No diarrhea. No fever or chills. No urinary complaint. Said that she has no workup for this. Allergies: Coded Allergies: KETOROLAC (Unverified Allergy, Unknown, 01/18/18) PENICILLINS (Unverified Allergy, Unknown, 04/19/14) RIFAMPIN (Unverified Allergy, Unknown, 04/19/14) SULFAMETHOXAZOLE (Unverified Allergy, Unknown, 04/19/14) TRIMETHOPRIM (Unverified Allergy, Unknown, 04/19/14) Patient History Past Medical History: see triage record, old chart reviewed Past Surgical History: freedom Pertinent Family History: none Social History: Reports: drug use Last Menstrual Period: last year Now: No Immunizations: other Reviewed Nursing Documentation: PMH: Agreed; PSxH: Agreed Nursing Documentation-PMH Past Medical History: No History, Except For Hx Cardiac Problems: Yes - TIA Hx Hypertension: Yes Hx Pacemaker: No Hx Asthma: No Hx COPD: No Hx Diabetes: No Hx Cancer: No Hx Dialysis: No History Of Psychiatric Problem: Yes Hx Neurological Problems: No Hx Cerebrovascular Accident: Yes - months ago Hx Seizures: No Review of Systems Eye: Denies: eye pain, blurred vision ENT: Denies: ear pain, nose congestion, throat swelling Respiratory: Denies: cough, shortness of breath Cardiovascular: Denies: chest pain, palpitations Gastrointestinal: Reports: abdominal pain, nausea, vomiting; Denies: diarrhea Musculoskeletal: Denies: back pain, joint pain Skin: Denies: rash Neurological: Denies: headache, numbness Endocrine: Denies: increased thirst, increased urine Hematologic/Lymphatic: Denies: easy bruising All Other Systems: negative except mentioned in HPI Physical Exam Vital Signs Date Time Temp Pulse Resp B/P (MAP) Pulse Ox O2 Delivery O2 Flow Rate FiO2 01/18/18 03:39 97.9 100 22 138/82 98 Room Air 97.9 vitals normal Sp02 EP Interpretation: reviewed, normal General Appearance: well appearing, no apparent distress, alert, other - very histrionic Head: normocephalic, atraumatic Eyes: bilateral eye PERRL, bilateral eye EOMI ENT: hearing grossly normal, normal pharynx Neck: full range of motion, supple, no meningismus Respiratory: chest non-tender, lungs clear, normal breath sounds Cardiovascular #1: regular rate, rhythm, no murmur Gastrointestinal: normal bowel sounds, no mass, no organomegaly, no bruit, non- distended, tenderness - diffuse Musculoskeletal: back normal, gait/station normal, normal range of motion Psychiatric: mood/affect normal Skin: warm/dry Medical Decision Making Diagnostic Impression: Primary Impression: Abdominal pain Qualified Codes: R10.84 - Generalized abdominal pain Additional Impression: Marijuana abuse ER Course She presents with generalized abdominal pain. She said that she done at this problem before but she's been here multiple times for the same thing. Keep asking for narcotics. She said she been vomiting nonstop for the last 3 days yet no ketones in her urine. I see no evidence of acute abdomen. She has no vomiting here. We'll discharge home. Lab Results Impression labs unremarkable. Last Vital Signs Date Time Temp Pulse Resp B/P (MAP) Pulse Ox O2 Delivery O2 Flow Rate FiO2 01/18/18 03:39 97.9 100 22 138/82 98 Room Air 97.9 Status: improved Disposition: HOME, SELF-CARE Condition: Stable Referrals: [facility],REFERRING (PCP) Patient Instructions: Abdominal Pain, Adult Additional Instructions: Follow-up with your doctor in 2-3 days. Return if symptom worsen. You may need a referral to see a technical support consultant if symptoms dont improve. JAVID TREJO M.D. Jan 18, 2018 04:07
[2018-01-18 04:18] VITALS: BP 132/78
[2018-01-18 04:24] LABS: APPEARANCE,URINE CLEAR; BASOPHILS % (AUTO) 0.8 % (0.0-2.0); BILIRUBIN, URINE NEGATIVE (NEGATIVE); EOSINOPHILS % (AUTO) 1.5 % (0.0-3.0); GLUCOSE, URINE (UA) NEGATIVE (NEGATIVE); HEMATOCRIT 36.3 % (37.0-47.0); HEMOGLOBIN 11.4 G/DL (12.0-16.0); KETONES,URINE NEGATIVE (NEGATIVE); LEUKOCYTE ESTERASE ,URINE 2+ (NEGATIVE); LYMPHOCYTES % (AUTO) 24.5 % (20.0-45.0); MEAN CORPUSCULAR VOLUME 77 FL (80-99); MONOCYTES % (AUTO) 13.1 % (1.0-10.0); NEUTROPHILS % (AUTO) 60.1 % (45.0-75.0); NITRITE,URINE NEGATIVE (NEGATIVE); PH,URINE 6.5 (4.5-8.0); PLATELET COUNT 255 K/UL (150-450); PROTEIN,URINE 1+ (NEGATIVE); RED CELL DISTRIBUTION WIDTH 16.1 % (11.6-14.8); UROBILINOGEN,URINE 4 MG/DL (0.0-1.0); WHITE BLOOD COUNT 5.6 K/UL (4.8-10.8)
[2018-01-18 04:33] LABS: COLOR,URINE YELLOW
[2018-01-18 04:38] LABS: ANION GAP 9 mmol/L (5-15); BLOOD UREA NITROGEN 11 mg/dL (7-18); CALCIUM 8.7 MG/DL (8.5-10.1); CARBON DIOXIDE 26 MMOL/L (21-32); CHLORIDE 106 MMOL/L (98-107); CREATININE 0.7 MG/DL (0.55-1.30); SODIUM 141 MMOL/L (136-145)
[2018-01-18 04:42] LABS: ALANINE AMINOTRANSFERASE 20 U/L (12-78); ALBUMIN 3.9 G/DL (3.4-5.0); ALKALINE PHOSPHATASE 89 U/L (46-116); ASPARTATE AMINO TRANSFERASE 18 U/L (15-37); BILIRUBIN,TOTAL 0.2 MG/DL (0.2-1.0)
[2018-01-18 05:06] VITALS: BP 124/72
== END 2018-01-18 05:09 | disposition home or self-care (01) ==
LOC: EDBD 03:50 → EMR 04:00
DX: R10.84 Generalized abdominal pain (principal); F12.10 Cannabis abuse, uncomplicated; Z88.0 Allergy status to penicillin; Z88.2 Allergy status to sulfonamides; Z88.8 Allergy status to other drugs, medicaments and biological substances; I10 Essential (primary) hypertension; Z86.73 Personal history of transient ischemic attack (TIA), and cerebral infarction without residual deficits
CPT/HCPCS: 36415; 80053; 80307; 81003; 81025; 83690; 85025; 96361; 96374; 99284; J1630; J2550

== ENCOUNTER 2018-09-21 15:29 | Emergency (ER) | payer MEDICAID, OTHER ==
[~2018-09-21] VITALS: Ht 167.6 cm; Wt 49.9 kg
[2018-09-21 15:48] VITALS: BP 127/79
[2018-09-21] MEDS ORDERED: TRAMADOL HCL50 MG ORAL ×2 (15:51→17:27)
[2018-09-21] MEDS ORDERED: Morphine Sulfate 4mg/ml Inj (IV/IM USE ONLY) IVP ONE ×2 (16:00→17:15)
[2018-09-21] MEDS ORDERED: DiphenhydrAMINE 50mg/ml Inj IVP ONE (16:00)
[2018-09-21 16:20] LABS: HEMATOCRIT 31.8 % (37.0-47.0); HEMOGLOBIN 9.5 G/DL (12.0-16.0); MEAN CORPUSCULAR VOLUME 69 FL (80-99); PLATELET COUNT 226 K/UL (150-450); RED BLOOD COUNT 4.62 M/UL (4.20-5.40); WHITE BLOOD COUNT 4.8 K/UL (4.8-10.8)
[2018-09-21 16:30] LABS: ANION GAP 10 mmol/L (5-15); BLOOD UREA NITROGEN 12 mg/dL (7-18); CALCIUM 8.5 MG/DL (8.5-10.1); CARBON DIOXIDE 23 MMOL/L (21-32); CHLORIDE 104 MMOL/L (98-107); CREATININE 0.8 MG/DL (0.55-1.30); POTASSIUM 3.7 MMOL/L (3.5-5.1); SODIUM 137 MMOL/L (136-145)
[2018-09-21 16:34] LABS: ALANINE AMINOTRANSFERASE 29 U/L (12-78); ALBUMIN 3.8 G/DL (3.4-5.0); ALBUMIN/GLOBULIN RATIO 0.8 (1.0-2.7); ALKALINE PHOSPHATASE 76 U/L (46-116); ASPARTATE AMINO TRANSFERASE 33 U/L (15-37); BILIRUBIN,TOTAL 0.4 MG/DL (0.2-1.0)
[2018-09-21 17:12] LABS: APPEARANCE,URINE CLOUDY; BILIRUBIN, URINE NEGATIVE (NEGATIVE); COLOR,URINE BROWN; GLUCOSE, URINE (UA) NEGATIVE (NEGATIVE); KETONES,URINE 3+ (NEGATIVE); LEUKOCYTE ESTERASE ,URINE 1+ (NEGATIVE); NITRITE,URINE NEGATIVE (NEGATIVE); PH,URINE 7 (4.5-8.0); PROTEIN,URINE 3+ (NEGATIVE); UROBILINOGEN,URINE 1 MG/DL (0.0-1.0)
[2018-09-21] MEDS ORDERED: ONDANSETRON ODT4 MG BC (17:27)
[2018-09-21 17:33] VITALS: BP 102/58
--- NOTE | 2018-09-21 18:26 | Emergency Room Report ---
History of Present Illness General Chief Complaint: General Complaint Source: Patient Present Illness HPI 23-year-old female presents ED for evaluation. Presenting with abdominal pain times one week. 10 out of 10, epigastric, sharp, nonradiating. Notes nausea and vomiting. States she has history of pancreatitis. States she has history of cholecystectomy but continues to have pain. Denies alcohol use. Denies drug use. Denies fevers or chills. Denies chest pain or shortness of breath. No other aggravating relieving factors. Denies any other associated symptoms Allergies: Coded Allergies: ACETAMINOPHEN (Verified Allergy, Unknown, 09/21/18) HALOPERIDOL (Verified Allergy, Unknown, 09/21/18) KETOROLAC (Unverified Allergy, Unknown, 01/18/18) LORAZEPAM (Verified Allergy, Unknown, rash, 09/21/18) PENICILLINS (Unverified Allergy, Unknown, 04/19/14) RIFAMPIN (Unverified Allergy, Unknown, 04/19/14) SULFAMETHOXAZOLE (Unverified Allergy, Unknown, 04/19/14) TRIMETHOPRIM (Unverified Allergy, Unknown, 04/19/14) Patient History Past Medical History: CVA/TIA Past Surgical History: freedom, other - ovarian torsion Pertinent Family History: none Social History: Denies: smoking, alcohol use, drug use Last Menstrual Period: 2 years ago, depo shot Immunizations: UTD Reviewed Nursing Documentation: PMH: Agreed; PSxH: Agreed Nursing Documentation-PMH Past Medical History: No History, Except For Hx Cardiac Problems: Yes - ovarian torsion Hx Hypertension: Yes Hx Pacemaker: No Hx Asthma: No Hx COPD: No Hx Diabetes: No Hx Cancer: No Hx Dialysis: No Hx Neurological Problems: Yes - TIA Hx Cerebrovascular Accident: Yes - months ago Hx Seizures: No Review of Systems All Other Systems: negative except mentioned in HPI Physical Exam Vital Signs Date Time Temp Pulse Resp B/P (MAP) Pulse Ox O2 Delivery O2 Flow Rate FiO2 09/21/18 15:38 98.4 93 16 127/79 98 Room Air Sp02 EP Interpretation: reviewed, normal General Appearance: alert, GCS 15, non-toxic, mild distress Head: normocephalic, atraumatic Eyes: bilateral eye normal inspection, bilateral eye PERRL ENT: hearing grossly normal, normal pharynx, no angioedema, normal voice Neck: full range of motion, supple/symm/no masses Respiratory: chest non-tender, lungs clear, normal breath sounds, speaking full sentences Cardiovascular #1: regular rate, rhythm, no edema Cardiovascular #2: 2+ carotid (R), 2+ carotid (L), 2+ radial (R), 2+ radial (L) , 2+ dorsalis pedis (R), 2+ dorsalis pedis (L) Gastrointestinal: normal bowel sounds, soft, non-distended, no guarding, no rebound, tenderness - epigastric Rectal: deferred Genitourinary: normal inspection, no CVA tenderness Musculoskeletal: back normal, gait/station normal, normal range of motion, non- tender Neurologic: alert, oriented x3, responsive, motor strength/tone normal, sensory intact, speech normal Psychiatric: judgement/insight normal, memory normal, mood/affect normal, no suicidal/homicidal ideation Reflexes: 3+ bicep (R), 3+ bicep (L), 3+ tricep (R), 3+ tricep (L), 3+ knee (R) , 3+ knee (L) Skin: normal color, no rash, warm/dry, well hydrated Lymphatic: no adenopathy Medical Decision Making Diagnostic Impression: Primary Impression: Abdominal pain Qualified Codes: R10.10 - Upper abdominal pain, unspecified Additional Impression: Chronic pain Qualified Codes: G89.29 - Other chronic pain ER Course Hospital Course 23-year-old F presents to ED with epigastric pain with N/V. differential diagnosis: gastritis, pancreatitis, SBO Clinical course Patient placed on stretcher. On playground monitor. After initial history and physical I ordered labs, IV fluids, pain meds, Zofran and Zantac Labs - no leukocytosis, no electrolyte abnormalities, lipase ok, LFTs normal, UA unremarkable Reviewed EMR. Patient has been here multiple times for similar presentation of pain related complaints. Patient has had numerous blood draws and CT scans which have been negative. I see no reason to repeat imaging at this time. After second dose of pain meds her symptoms have improved. Patient safer discharge close outpatient follow-up I reviewed CURES; patient has not recieved narcotic medications since June. I feel this is a highly complex case requiring extensive working including EKG/ Rhythm strip, Xray/CT/US, Blood/urine lab work, repeat exams while in ED, and administration of strong opiates/narcotics for pain control, admission to hospital or close patient follow up. Diagnosis - abdominal pain, chronic pain Stable and discharged to home with prescriptions for zofran, tramadol. Followup with PMD. Return to ED if symptoms recur or worsen Labs Test 09/21/18 16:03 09/21/18 16:50 White Blood Count 4.8 K/UL (4.8-10.8) Red Blood Count 4.62 M/UL (4.20-5.40) Hemoglobin 9.5 G/DL (12.0-16.0) Hematocrit 31.8 % (37.0-47.0) Mean Corpuscular Volume 69 FL (80-99) Mean Corpuscular Hemoglobin 20.5 PG (27.0-31.0) Mean Corpuscular Hemoglobin Concent 29.8 G/DL (32.0-36.0) Red Cell Distribution Width 17.0 % (11.6-14.8) Platelet Count 226 K/UL (150-450) Mean Platelet Volume 7.4 FL (6.5-10.1) Neutrophils (%) (Auto) % (45.0-75.0) Lymphocytes (%) (Auto) % (20.0-45.0) Monocytes (%) (Auto) % (1.0-10.0) Eosinophils (%) (Auto) % (0.0-3.0) Basophils (%) (Auto) % (0.0-2.0) Differential Total Cells Counted 100 Neutrophils % (Manual) 83 % (45-75) Lymphocytes % (Manual) 12 % (20-45) Monocytes % (Manual) 5 % (1-10) Eosinophils % (Manual) 0 % (0-3) Basophils % (Manual) 0 % (0-2) Band Neutrophils 0 % (0-8) Platelet Estimate Adequate Platelet Morphology Normal Polychromasia Occasional Hypochromasia 3+ Microcytosis 3+ Tear Drop Cells Occasional Ovalocytes 1+ Sodium Level 137 MMOL/L (136-145) Potassium Level 3.7 MMOL/L (3.5-5.1) Chloride Level 104 MMOL/L (98-107) Carbon Dioxide Level 23 MMOL/L (21-32) Anion Gap 10 mmol/L (5-15) Blood Urea Nitrogen 12 mg/dL (7-18) Creatinine 0.8 MG/DL (0.55-1.30) Estimat Glomerular Filtration Rate > 60 mL/min (>60) Glucose Level 83 MG/DL (74-106) Calcium Level 8.5 MG/DL (8.5-10.1) Total Bilirubin 0.4 MG/DL (0.2-1.0) Aspartate Amino Transf (AST/SGOT) 33 U/L (15-37) Alanine Aminotransferase (ALT/SGPT) 29 U/L (12-78) Alkaline Phosphatase 76 U/L (46-116) Total Protein 8.5 G/DL (6.4-8.2) Albumin 3.8 G/DL (3.4-5.0) Globulin 4.7 g/dL Albumin/Globulin Ratio 0.8 (1.0-2.7) Lipase 118 U/L (73-393) Urine Color Brown Urine Appearance Cloudy Urine pH 7 (4.5-8.0) Urine Specific [place] 1.010 (1.005-1.035) Urine Protein 3+ (NEGATIVE) Urine Glucose (UA) Negative (NEGATIVE) Urine Ketones 3+ (NEGATIVE) Urine Blood 4+ (NEGATIVE) Urine Nitrite Negative (NEGATIVE) Urine Bilirubin Negative (NEGATIVE) Urine Urobilinogen 1 MG/DL (0.0-1.0) Urine Leukocyte Esterase 1+ (NEGATIVE) Urine RBC Tntc /HPF (0 - 2) Urine WBC 2-4 /HPF (0 - 2) Urine Squamous Epithelial Cells Occasional /LPF Urine Bacteria Few /HPF (NONE) Urine HCG, Qualitative Negative (NEGATIVE) Urine Opiates Screen Positive (NEGATIVE) Urine Barbiturates Screen Negative (NEGATIVE) Phencyclidine (PCP) Screen Negative (NEGATIVE) Urine Amphetamines Screen Negative (NEGATIVE) Urine Benzodiazepines Screen Negative (NEGATIVE) Urine Cocaine Screen Negative (NEGATIVE) Urine Marijuana (THC) Screen Positive (NEGATIVE) Last Vital Signs Date Time Temp Pulse Resp B/P (MAP) Pulse Ox O2 Delivery O2 Flow Rate FiO2 09/21/18 17:33 74 18 102/58 99 Room Air 09/21/18 16:37 98.4 Status: improved Disposition: HOME, SELF-CARE Condition: Stable Scripts Ondansetron Odt* (ZOFRAN ODT*) 4 Mg Tab.rapdis 4 MG BC EVERY 6 HOURS PRN for Nausea & Vomiting, #20 TAB 0 Refills Prov: [place],Tyler MD 09/21/18 Tramadol Hcl* (ULTRAM*) 50 Mg Tablet 50 MG ORAL Q6H PRN for For Pain for 3 Days, % 0 Refills Prov: Tyler Draper MD 09/21/18 Referrals: [facility],REFERRING (PCP) Patient Instructions: Abdominal Pain, Adult Tyler Draper MD Sep 21, 2018 18:26
== END 2018-09-21 17:33 | disposition home or self-care (01) ==
LOC: EMR 16:57
DX: R10.9 Unspecified abdominal pain (principal); G89.29 Other chronic pain; I10 Essential (primary) hypertension; Z86.73 Personal history of transient ischemic attack (TIA), and cerebral infarction without residual deficits; Z88.0 Allergy status to penicillin; Z88.2 Allergy status to sulfonamides; Z88.6 Allergy status to analgesic agent; Z88.8 Allergy status to other drugs, medicaments and biological substances
CPT/HCPCS: 36415; 80053; 80307; 81003; 81025; 83690; 85007; 85025; 96361; 96374; 96375; 96376; 99284; J1200; J2270; J2405; S0028

== ENCOUNTER 2018-11-09 09:09 | Emergency (ER) | payer OTHER ==
[~2018-11-09] VITALS: Ht 167.6 cm; Wt 59.4 kg
[~2018-11-09 09:09] MED LIST changes: +ONDANSETRON ODT4 MG BC; +TRAMADOL HCL50 MG ORAL
--- NOTE | 2018-11-09 09:25 | NUR ---
ED Nurse Note: Pt came into the ER w/ complaints of sickle cell flare up x 3 days. Complaining of generalized body pain 10/10 x 3 days. Noted to have right eyelid swelling w/ redness. Painful to touch. A + O x4. Ambulatory. Skin warm to touch.
[2018-11-09 09:26] VITALS: BP 118/69
[2018-11-09] MEDS ORDERED: Morphine Sulfate 4mg/ml Inj (IV/IM USE ONLY) IVP ONE (09:30)
[2018-11-09] MEDS ORDERED: DiphenhydrAMINE 50mg/ml Inj IVP ONE ×2 (09:30→10:30)
--- NOTE | 2018-11-09 09:34 | Emergency Room Report ---
History of Present Illness General Chief Complaint: Pain Source: Patient Present Illness HPI 23-year-old female presents ED for evaluation. Complaining of "sickle cell flare" and vomiting last 2 days. States she's ran out of her pain medication. Was taking tramadol. States she's been having multiple episodes of vomiting and pain. Throbbing, 10 out of 10, nonradiating. Pain is diffuse. Denies chest pain or shortness of breath. Denies fevers or chills. No other aggravating relieving factors. Denies any other associated symptoms Allergies: Coded Allergies: ACETAMINOPHEN (Verified Allergy, Unknown, 09/21/18) HALOPERIDOL (Verified Allergy, Unknown, 09/21/18) KETOROLAC (Unverified Allergy, Unknown, 01/18/18) LORAZEPAM (Verified Allergy, Unknown, rash, 09/21/18) PENICILLINS (Unverified Allergy, Unknown, 04/19/14) RIFAMPIN (Unverified Allergy, Unknown, 04/19/14) SULFAMETHOXAZOLE (Unverified Allergy, Unknown, 04/19/14) TRIMETHOPRIM (Unverified Allergy, Unknown, 04/19/14) Patient History Past Medical History: HTN, CVA/TIA, other - sickle cell Past Surgical History: none Pertinent Family History: none Social History: Denies: smoking, alcohol use, drug use Now: No Immunizations: UTD Reviewed Nursing Documentation: PMH: Agreed; PSxH: Agreed Nursing Documentation-PMH Past Medical History: No History, Except For Hx Cardiac Problems: Yes - ovarian torsion, sickle cell anemia Hx Hypertension: Yes Hx Pacemaker: No Hx Asthma: No Hx COPD: No Hx Diabetes: No Hx Cancer: No Hx Dialysis: No Hx Neurological Problems: Yes - TIA Hx Cerebrovascular Accident: Yes - months ago Hx Seizures: No Review of Systems All Other Systems: negative except mentioned in HPI Physical Exam Vital Signs Date Time Temp Pulse Resp B/P (MAP) Pulse Ox O2 Delivery O2 Flow Rate FiO2 11/09/18 09:13 97.9 76 20 109/66 100 Room Air Sp02 EP Interpretation: reviewed, normal General Appearance: no apparent distress, alert, GCS 15, non-toxic Head: normocephalic, atraumatic Eyes: bilateral eye normal inspection, bilateral eye PERRL ENT: hearing grossly normal, normal pharynx, no angioedema, normal voice Neck: full range of motion, supple/symm/no masses Respiratory: chest non-tender, lungs clear, normal breath sounds, speaking full sentences Cardiovascular #1: regular rate, rhythm, no edema Cardiovascular #2: 2+ carotid (R), 2+ carotid (L), 2+ radial (R), 2+ radial (L) , 2+ dorsalis pedis (R), 2+ dorsalis pedis (L) Gastrointestinal: normal bowel sounds, non tender, soft, non-distended, no guarding, no rebound Rectal: deferred Genitourinary: normal inspection, no CVA tenderness Musculoskeletal: back normal, gait/station normal, normal range of motion, non- tender Neurologic: alert, oriented x3, responsive, motor strength/tone normal, sensory intact, speech normal Psychiatric: judgement/insight normal, memory normal, mood/affect normal, no suicidal/homicidal ideation Reflexes: 3+ bicep (R), 3+ bicep (L), 3+ tricep (R), 3+ tricep (L), 3+ knee (R) , 3+ knee (L) Skin: normal color, no rash, warm/dry, well hydrated Lymphatic: no adenopathy Medical Decision Making Diagnostic Impression: Primary Impression: Chronic pain Qualified Codes: G89.29 - Other chronic pain Additional Impression: Sickle cell anemia Qualified Codes: D57.1 - Sickle-cell disease without crisis ER Course Hospital Course 23-year-old F presents ED complaining of generalized body pain, h/o sickle cell Differential diagnoses include: IN/unstable angina, sickle cell crisis, sepsis, UTI, pneumonia Clinical course Patient placed on stretcher. on radiation monitor. After initial history and physical I ordered labs, IV fluids, pain meds, Zofran Labsno leukocytosis, hemoglobin, elect lites okay, UA negative, U tox positive for THC Patient has been here previously for similar pain. Hemoglobin has been higher at that time however is within normal range for the patient. On reassessment patient feels better. Safe for discharge and close outpatient follow-up. states he has a PMD Diagnosis - chronic pain, sickle cell anemia Stable and discharged to home with Rx Tramadol, Zofran, clindamycin. Followup with PMD. Return to ED if symptoms recur or worsen Labs Test 11/09/18 09:30 White Blood Count 5.6 K/UL (4.8-10.8) Red Blood Count 4.16 M/UL (4.20-5.40) Hemoglobin 8.0 G/DL (12.0-16.0) Hematocrit 27.4 % (37.0-47.0) Mean Corpuscular Volume 66 FL (80-99) Mean Corpuscular Hemoglobin 19.2 PG (27.0-31.0) Mean Corpuscular Hemoglobin Concent 29.1 G/DL (32.0-36.0) Red Cell Distribution Width 19.6 % (11.6-14.8) Platelet Count 303 K/UL (150-450) Mean Platelet Volume 7.3 FL (6.5-10.1) Neutrophils (%) (Auto) 64.5 % (45.0-75.0) Lymphocytes (%) (Auto) 20.2 % (20.0-45.0) Monocytes (%) (Auto) 11.9 % (1.0-10.0) Eosinophils (%) (Auto) 2.7 % (0.0-3.0) Basophils (%) (Auto) 0.8 % (0.0-2.0) Reticulocyte Count 1.1 % (0.0-2.0) Urine Color Pale yellow Urine Appearance Clear Urine pH 6 (4.5-8.0) Urine Specific [place] 1.020 (1.005-1.035) Urine Protein Negative (NEGATIVE) Urine Glucose (UA) Negative (NEGATIVE) Urine Ketones Negative (NEGATIVE) Urine Blood Negative (NEGATIVE) Urine Nitrite Negative (NEGATIVE) Urine Bilirubin Negative (NEGATIVE) Urine Urobilinogen Normal MG/DL (0.0-1.0) Urine Leukocyte Esterase 2+ (NEGATIVE) Urine RBC 0-2 /HPF (0 - 2) Urine WBC 2-4 /HPF (0 - 2) Urine Squamous Epithelial Cells Few /LPF (NONE/OCC) Urine Bacteria Few /HPF (NONE) Urine Mucus Few /LPF (NONE/OCC) Urine HCG, Qualitative Negative (NEGATIVE) Sodium Level 140 MMOL/L (136-145) Potassium Level 4.1 MMOL/L (3.5-5.1) Chloride Level 106 MMOL/L (98-107) Carbon Dioxide Level 27 MMOL/L (21-32) Anion Gap 7 mmol/L (5-15) Blood Urea Nitrogen 7 mg/dL (7-18) Creatinine 0.6 MG/DL (0.55-1.30) Estimat Glomerular Filtration Rate > 60 mL/min (>60) Glucose Level 98 MG/DL (74-106) Calcium Level 8.4 MG/DL (8.5-10.1) Total Bilirubin 0.1 MG/DL (0.2-1.0) Aspartate Amino Transf (AST/SGOT) 36 U/L (15-37) Alanine Aminotransferase (ALT/SGPT) 44 U/L (12-78) Alkaline Phosphatase 96 U/L (46-116) Total Protein 7.3 G/DL (6.4-8.2) Albumin 3.2 G/DL (3.4-5.0) Globulin 4.1 g/dL Albumin/Globulin Ratio 0.8 (1.0-2.7) Lipase 155 U/L (73-393) Urine Opiates Screen Negative (NEGATIVE) Urine Barbiturates Screen Negative (NEGATIVE) Phencyclidine (PCP) Screen Negative (NEGATIVE) Urine Amphetamines Screen Negative (NEGATIVE) Urine Benzodiazepines Screen Negative (NEGATIVE) Urine Cocaine Screen Negative (NEGATIVE) Urine Marijuana (THC) Screen Positive (NEGATIVE) Last Vital Signs Date Time Temp Pulse Resp B/P (MAP) Pulse Ox O2 Delivery O2 Flow Rate FiO2 11/09/18 09:26 97.9 79 20 118/69 97 Room Air Status: improved Disposition: HOME, SELF-CARE Condition: Stable Scripts Clindamycin Hcl (CLINDAMYCIN HCL) 300 Mg Capsule 300 MG ORAL THREE TIMES A DAY, #21 CAP Prov: Tyler Draper MD 11/09/18 Ondansetron Odt* (ZOFRAN ODT*) 4 Mg Tab.rapdis 4 MG BC EVERY 6 HOURS PRN for Nausea & Vomiting, #10 TAB 0 Refills Prov: Tyler Draper MD 11/09/18 Tramadol Hcl* (ULTRAM*) 50 Mg Tablet 50 MG ORAL Q6H PRN for For Pain for 3 Days, TAB 0 Refills Prov: Tyler Draper MD 11/09/18 Referrals: NON PHYSICIAN (PCP) Tyler Draper MD Nov 09, 2018 09:34
[2018-11-09 09:47] LABS: BASOPHILS % (AUTO) 0.8 % (0.0-2.0); EOSINOPHILS % (AUTO) 2.7 % (0.0-3.0); HEMATOCRIT 27.4 % (37.0-47.0); LYMPHOCYTES % (AUTO) 20.2 % (20.0-45.0); MEAN CORPUSCULAR VOLUME 66 FL (80-99); MONOCYTES % (AUTO) 11.9 % (1.0-10.0); NEUTROPHILS % (AUTO) 64.5 % (45.0-75.0); PLATELET COUNT 303 K/UL (150-450); RED BLOOD COUNT 4.16 M/UL (4.20-5.40); RED CELL DISTRIBUTION WIDTH 19.6 % (11.6-14.8); WHITE BLOOD COUNT 5.6 K/UL (4.8-10.8)
[2018-11-09 09:48] LABS: APPEARANCE,URINE CLEAR; BILIRUBIN, URINE NEGATIVE (NEGATIVE); COLOR,URINE PALE YELLOW; GLUCOSE, URINE (UA) NEGATIVE (NEGATIVE); KETONES,URINE NEGATIVE (NEGATIVE); LEUKOCYTE ESTERASE ,URINE 2+ (NEGATIVE); NITRITE,URINE NEGATIVE (NEGATIVE); PH,URINE 6 (4.5-8.0); PROTEIN,URINE NEGATIVE (NEGATIVE); UROBILINOGEN,URINE NORMAL MG/DL (0.0-1.0)
[2018-11-09 09:59] LABS: ANION GAP 7 mmol/L (5-15); BLOOD UREA NITROGEN 7 mg/dL (7-18); CALCIUM 8.4 MG/DL (8.5-10.1); CARBON DIOXIDE 27 MMOL/L (21-32); CHLORIDE 106 MMOL/L (98-107); CREATININE 0.6 MG/DL (0.55-1.30); POTASSIUM 4.1 MMOL/L (3.5-5.1); SODIUM 140 MMOL/L (136-145)
[2018-11-09 10:03] LABS: ALANINE AMINOTRANSFERASE 44 U/L (12-78); ALBUMIN 3.2 G/DL (3.4-5.0); ALBUMIN/GLOBULIN RATIO 0.8 (1.0-2.7); ALKALINE PHOSPHATASE 96 U/L (46-116); ASPARTATE AMINO TRANSFERASE 36 U/L (15-37); BILIRUBIN,TOTAL 0.1 MG/DL (0.2-1.0)
[2018-11-09] MEDS ORDERED: traMADol 50mg tab ORAL ONE (11:15)
[2018-11-09] MEDS ORDERED: TRAMADOL HCL50 MG ORAL (11:27)
[2018-11-09] MEDS ORDERED: ONDANSETRON ODT4 MG BC (11:27)
[2018-11-09] MEDS ORDERED: CLINDAMYCIN HC300 MG ORAL (11:35)
[2018-11-09 11:37] VITALS: BP 108/75
--- NOTE | 2018-11-09 11:37 | NUR ---
ED Nurse Note: Discharge instructions given to pt. Verbalized understanding. Answered all questions. ID band and IV site removed. Left ER w/ all belongings and w/ a steady gait.
== END 2018-11-09 11:37 | disposition home or self-care (01) ==
LOC: EMR 09:25
DX: D57.1 Sickle-cell disease without crisis (principal); G89.29 Other chronic pain; M79.10 Myalgia, unspecified site; R11.10 Vomiting, unspecified; I10 Essential (primary) hypertension; Z86.73 Personal history of transient ischemic attack (TIA), and cerebral infarction without residual deficits; Z88.0 Allergy status to penicillin; Z88.6 Allergy status to analgesic agent; Z88.8 Allergy status to other drugs, medicaments and biological substances; Z88.2 Allergy status to sulfonamides
CPT/HCPCS: 36415; 80053; 80307; 81003; 81025; 83690; 85025; 85044; 96361; 96374; 96375; 96376; 99284; J1200; J2270; J2405; S0028

== ENCOUNTER 2019-02-20 23:04 | Emergency (ER) | payer OTHER ==
[~2019-02-20] VITALS: Ht 165.1 cm; Wt 68.0 kg
[~2019-02-20 23:04] MED LIST changes: +CLINDAMYCIN HC300 MG ORAL
[2019-02-20 23:05] VITALS: BP 134/80
--- NOTE | 2019-02-20 23:05 | NUR ---
ED Nurse Note: Pt arrived ambulatory into ED for sickle cell crisis. Pt states she was D/C's from [facility] today but nothing was done.
[2019-02-20] MEDS ORDERED: Morphine Sulfate 2mg/ml Inj(IV/IM USE ONLY) IM ONE (23:15)
--- NOTE | 2019-02-20 23:20 | NUR ---
ED Nurse Note: Pt currently sleeping in bed, showing no signs of acute distress. VSS.
[2019-02-21] MEDS ORDERED: IBUPROFEN600 MG ORAL (00:10)
--- NOTE | 2019-02-21 00:11 | Emergency Room Report ---
History of Present Illness General Chief Complaint: Abdominal Pain Source: Patient Present Illness HPI This is a 24-year-old female with a history of sickle cell. She presents with chief complaint of body pain and sickle cell crisis. She said his been ongoing for 2 weeks. She said she went [place] and the did not do anything for her so she left. She took a taxi here. Complain of generalized body pain. 10 out of 10. No nausea no vomiting. No fever chills. Nothing made it better. Nothing made it worse. No radiation. Anus to abdomen and back. Allergies: Coded Allergies: ACETAMINOPHEN (Verified Allergy, Unknown, 09/21/18) HALOPERIDOL (Verified Allergy, Unknown, 09/21/18) KETOROLAC (Unverified Allergy, Unknown, 01/18/18) LORAZEPAM (Verified Allergy, Unknown, rash, 09/21/18) PENICILLINS (Unverified Allergy, Unknown, 04/19/14) RIFAMPIN (Unverified Allergy, Unknown, 04/19/14) SULFAMETHOXAZOLE (Unverified Allergy, Unknown, 04/19/14) TRIMETHOPRIM (Unverified Allergy, Unknown, 04/19/14) Patient History Past Medical History: see triage record, old chart reviewed Past Surgical History: none Pertinent Family History: none Social History: Denies: smoking Last Menstrual Period: depo shot Now: No Immunizations: UTD Reviewed Nursing Documentation: PMH: Agreed; PSxH: Agreed Nursing Documentation-PMH Past Medical History: No History, Except For Hx Cardiac Problems: Yes - ovarian torsion, sickle cell anemia Hx Hypertension: Yes Hx Pacemaker: No Hx Asthma: No Hx COPD: No Hx Diabetes: No Hx Cancer: No Hx Dialysis: No Hx Neurological Problems: Yes - TIA Hx Cerebrovascular Accident: Yes - months ago Hx Seizures: No Review of Systems Eye: Denies: eye pain, blurred vision ENT: Denies: ear pain, nose congestion, throat swelling Respiratory: Denies: cough, shortness of breath Cardiovascular: Denies: chest pain, palpitations Gastrointestinal: Reports: abdominal pain; Denies: diarrhea, nausea, vomiting Musculoskeletal: Reports: back pain, joint pain Skin: Denies: rash Neurological: Denies: headache, numbness Endocrine: Denies: increased thirst, increased urine Hematologic/Lymphatic: Denies: easy bruising All Other Systems: negative except mentioned in HPI Physical Exam Vital Signs Date Time Temp Pulse Resp B/P (MAP) Pulse Ox O2 Delivery O2 Flow Rate FiO2 02/20/19 23:05 98.2 81 18 134/80 94 Room Air vitals normal Sp02 EP Interpretation: reviewed, normal General Appearance: well appearing, no apparent distress, alert Head: normocephalic, atraumatic Eyes: bilateral eye PERRL, bilateral eye EOMI ENT: hearing grossly normal, normal pharynx Neck: full range of motion, supple, no meningismus Respiratory: chest non-tender, lungs clear, normal breath sounds Cardiovascular #1: regular rate, rhythm, no murmur Gastrointestinal: normal bowel sounds, non tender, no mass, no organomegaly, no bruit, non-distended Musculoskeletal: back normal, gait/station normal, normal range of motion Psychiatric: mood/affect normal Skin: warm/dry Medical Decision Making Diagnostic Impression: Primary Impression: Sickle cell crisis Additional Impressions: Drug-seeking behavior Chronic pain Qualified Codes: G89.4 - Chronic pain syndrome ER Course Patient presents with exacerbation of chronic pain/sickle cell pain. She still has IV [place] on her arms. She claimed that this occurred because she was giving plasma. This is unlikely. I gave her a dose of morphine here and will discharge home. No evidence of aplastic crisis. No evidence of infection. Last Vital Signs Date Time Temp Pulse Resp B/P (MAP) Pulse Ox O2 Delivery O2 Flow Rate FiO2 02/20/19 23:05 105 18 Room Air 02/20/19 23:05 98.2 94 02/20/19 23:05 134/80 Status: improved Disposition: HOME, SELF-CARE Condition: Stable Scripts Ibuprofen* (MOTRIN*) 600 Mg Tablet 600 MG ORAL THREE TIMES A DAY, #30 TAB 0 Refills Prov: Carlos A Haji MD 02/21/19 Referrals: [facility],REFERR[facility] (PCP) Additional Instructions: Follow-up with your doctor in 7 days for refill your medication. Return if symptom worsen. Carlos A Haji MD February 21, 2019 00:11
[2019-02-21 00:15] VITALS: BP 121/65
--- NOTE | 2019-02-21 00:15 | NUR ---
ED Nurse Note: Pt cleared by . Pt A/Ox4, ambulatory with steady gait. Discharge paperwork and prescriptions provided. Pt verbalized understanding of all instructions. All belongings taken with pt. ID band removed.
== END 2019-02-21 00:15 | disposition home or self-care (01) ==
LOC: EMR 23:19
DX: D57.00 Hb-SS disease with crisis, unspecified (principal); Z76.5 Malingerer [conscious simulation]; G89.4 Chronic pain syndrome; Z88.6 Allergy status to analgesic agent; Z88.0 Allergy status to penicillin; Z88.2 Allergy status to sulfonamides; Z88.8 Allergy status to other drugs, medicaments and biological substances; Z86.73 Personal history of transient ischemic attack (TIA), and cerebral infarction without residual deficits; I10 Essential (primary) hypertension
CPT/HCPCS: 96372; 99283; J2270

== ENCOUNTER 2019-06-25 17:58 | Emergency (ER) | payer OTHER ==
[~2019-06-25] VITALS: Ht 167.6 cm; Wt 58.1 kg
[~2019-06-25 17:58] MED LIST changes: +IBUPROFEN600 MG ORAL
--- NOTE | 2019-06-25 18:13 | NUR ---
ED Nurse Note: PT WALKED IN TO ER TODAY FROM HOME. AOX4. PT C/O ABDOMINAL PAIN RADIATING TO LOWER BACK X 1400 TODAY. PT BELIEVES SHE IS HAVING A SICKLE CELL CRISIS. PT DENIES DIFFICULTY URINATING OR PAINFUL URINATION. PT DENIES ANY CHANGES IN URINARY FREQUENCY.
[2019-06-25 18:14] VITALS: BP 106/62
[2019-06-25 18:28] LABS: BASOPHILS % (AUTO) 0.9 % (0.0-2.0); EOSINOPHILS % (AUTO) 0.7 % (0.0-3.0); HEMATOCRIT 45.5 % (37.0-47.0); HEMOGLOBIN 15.1 G/DL (12.0-16.0); LYMPHOCYTES % (AUTO) 19.1 % (20.0-45.0); MEAN CORPUSCULAR VOLUME 96 FL (80-99); MONOCYTES % (AUTO) 5.1 % (1.0-10.0); NEUTROPHILS % (AUTO) 74.2 % (45.0-75.0); PLATELET COUNT 191 K/UL (150-450); RED BLOOD COUNT 4.76 M/UL (4.20-5.40); RED CELL DISTRIBUTION WIDTH 11.3 % (11.6-14.8); WHITE BLOOD COUNT 7.5 K/UL (4.8-10.8)
--- NOTE | 2019-06-25 18:29 | Emergency Room Report ---
History of Present Illness General Chief Complaint: Pain Source: Patient Present Illness HPI 24-year-old female history of pain seeking behavior history of sickle cell trait history of chronic abdominal pain, currently on Suboxone presents with 2 months of generalized abdominal pain no aggravating relieving factors, severity is moderate, constant she endorses nausea, vomiting no diarrhea no chest pain no shortness of breath, no dysuria, patient states that she needs something stronger to help her pain, she states she is allergic to Tylenol and ibuprofen require something IV. Allergies: Coded Allergies: ACETAMINOPHEN (Verified Allergy, Unknown, 09/21/18) HALOPERIDOL (Verified Allergy, Unknown, 09/21/18) KETOROLAC (Unverified Allergy, Unknown, 01/18/18) LORAZEPAM (Verified Allergy, Unknown, rash, 09/21/18) PENICILLINS (Unverified Allergy, Unknown, 04/19/14) RIFAMPIN (Unverified Allergy, Unknown, 04/19/14) SULFAMETHOXAZOLE (Unverified Allergy, Unknown, 04/19/14) TRIMETHOPRIM (Unverified Allergy, Unknown, 04/19/14) Patient History Past Medical History: see triage record Last Menstrual Period: depo Now: No Reviewed Nursing Documentation: PMH: Agreed; PSxH: Agreed Nursing Documentation-PMH Past Medical History: No History, Except For Hx Cardiac Problems: Yes - ovarian torsion, sickle cell anemia Hx Hypertension: Yes Hx Pacemaker: No Hx Asthma: No Hx COPD: No Hx Diabetes: No Hx Cancer: No Hx Dialysis: No Hx Neurological Problems: Yes - TIA Hx Cerebrovascular Accident: Yes Hx Seizures: No Review of Systems All Other Systems: negative except mentioned in HPI Physical Exam Vital Signs Date Time Temp Pulse Resp B/P (MAP) Pulse Ox O2 Delivery O2 Flow Rate FiO2 06/25/19 18:01 98.4 92 18 97/53 (68) 98 Room Air Sp02 EP Interpretation: reviewed, normal General Appearance: well appearing, no apparent distress, alert Head: normocephalic, atraumatic Eyes: bilateral eye PERRL, bilateral eye EOMI ENT: uvula midline, moist mucus membranes Neck: supple, thyroid normal, supple/symm/no masses Respiratory: lungs clear, no respiratory distress, no retraction, no accessory muscle use Cardiovascular #1: normal peripheral pulses, regular rate, rhythm, no edema, no gallop, no murmur Gastrointestinal: non tender, soft, no guarding, no rebound Musculoskeletal: normal inspection Neurologic: alert, oriented x3 Psychiatric: mood/affect normal Skin: no rash, warm/dry Medical Decision Making Diagnostic Impression: Primary Impression: Abdominal pain Qualified Codes: R10.84 - Generalized abdominal pain ER Course 24-year-old female presents with generalized abdominal pain x2 months, differential diagnosis includes appendicitis, functional abdominal pain, pain seeking behavior Patient on multiple evaluations was noted to be on her cell phone, patient requesting strong IV pain medications Patient states she wants Dilaudid or IV Benadryl Patient with history of pain seeking behavior Scan is negative for acute processes She is refusing to give urine Disposition home with return precautions Laboratory Tests Test 06/25/19 18:16 White Blood Count 7.5 K/UL (4.8-10.8) Red Blood Count 4.76 M/UL (4.20-5.40) Hemoglobin 15.1 G/DL (12.0-16.0) Hematocrit 45.5 % (37.0-47.0) Mean Corpuscular Volume 96 FL (80-99) Mean Corpuscular Hemoglobin 31.8 PG (27.0-31.0) H Mean Corpuscular Hemoglobin Concent 33.3 G/DL (32.0-36.0) Red Cell Distribution Width 11.3 % (11.6-14.8) L Platelet Count 191 K/UL (150-450) Mean Platelet Volume 8.4 FL (6.5-10.1) Neutrophils (%) (Auto) 74.2 % (45.0-75.0) Lymphocytes (%) (Auto) 19.1 % (20.0-45.0) L Monocytes (%) (Auto) 5.1 % (1.0-10.0) Eosinophils (%) (Auto) 0.7 % (0.0-3.0) Basophils (%) (Auto) 0.9 % (0.0-2.0) Sodium Level 140 MMOL/L (136-145) Potassium Level 3.7 MMOL/L (3.5-5.1) Chloride Level 107 MMOL/L (98-107) Carbon Dioxide Level 24 MMOL/L (21-32) Anion Gap 9 mmol/L (5-15) Blood Urea Nitrogen 12 mg/dL (7-18) Creatinine 0.9 MG/DL (0.55-1.30) Estimate Glomerular Filtration Rate > 60 mL/min (>60) Glucose Level 90 MG/DL (74-106) Calcium Level 8.8 MG/DL (8.5-10.1) Total Bilirubin 0.5 MG/DL (0.2-1.0) Aspartate Amino Transferase (AST) 16 U/L (15-37) Alanine Aminotransferase (ALT) 17 U/L (12-78) Alkaline Phosphatase 109 U/L (46-116) Total Protein 8.4 G/DL (6.4-8.2) H Albumin 4.1 G/DL (3.4-5.0) Globulin 4.3 g/dL Albumin/Globulin Ratio 1.0 (1.0-2.7) Lipase 156 U/L (73-393) Human Chorionic Gonadotropin, Quant < 1 mIU/mL (1-6) L CT/MRI/US Diagnostic Results CT/MRI/US Diagnostic Results : Impression Preliminary Findings Only See Final Report For Complete Findings CT ABDOMEN & PELVIS With Contrast: The GI tract is unremarkable. Normal appendix. No acute process within the solid organs. Trace physiologic free fluid in the pelvis. Bilateral pars defects at L5. Radiologist: Adriel Cam MD Study ready at 20:06 and initial results transmitted at 20:15 Last Vital Signs Date Time Temp Pulse Resp B/P (MAP) Pulse Ox O2 Delivery O2 Flow Rate FiO2 06/25/19 18:14 98.2 86 16 106/62 100 Room Air Disposition: HOME, SELF-CARE Condition: Stable Scripts Dicyclomine Hcl* (DICYCLOMINE HCL*) 10 Mg Capsule 10 MG ORAL QID PRN for Abdominal cramps, #20 CAP Prov: Jd Gomes MD 06/25/[address] Patient Instructions: Abdominal Pain, Adult, [id number] Additional Instructions: The patient was provided with discharge instructions, notified to follow-up with a primary care doctor and or specialist in the next 24-48 hours, and to return to the ED if they have worsening of their symptoms. Please note that this report is being documented using [employer] technology. This can lead to erroneous entry secondary to incorrect interpretation by the dictating instrument. Jd Gomes MD Jun 25, 2019 18:29
[2019-06-25] MEDS ORDERED: Morphine Sulfate 2mg/ml Inj(IV/IM USE ONLY) IVP ONE (18:30)
[2019-06-25] MEDS ORDERED: Isovue-300 100ml vial INJ PRN (18:30)
[2019-06-25 18:39] LABS: ANION GAP 9 mmol/L (5-15); BLOOD UREA NITROGEN 12 mg/dL (7-18); CALCIUM 8.8 MG/DL (8.5-10.1); CARBON DIOXIDE 24 MMOL/L (21-32); CHLORIDE 107 MMOL/L (98-107); CREATININE 0.9 MG/DL (0.55-1.30); POTASSIUM 3.7 MMOL/L (3.5-5.1); SODIUM 140 MMOL/L (136-145)
[2019-06-25 18:43] LABS: ALANINE AMINOTRANSFERASE 17 U/L (12-78); ALBUMIN 4.1 G/DL (3.4-5.0); ALKALINE PHOSPHATASE 109 U/L (46-116); ASPARTATE AMINO TRANSFERASE 16 U/L (15-37); BILIRUBIN,TOTAL 0.5 MG/DL (0.2-1.0)
[2019-06-25 19:05] VITALS: BP 110/61
--- NOTE | 2019-06-25 19:05 | NUR ---
ED Nurse Note: PT REMINDED THAT URINE SPECIMEN IS NEEDED. PT STATES SHE IS UNABLE TO URINATE AT THIS TIME. DR ZAFAR BRAR.
--- NOTE | 2019-06-25 19:05 | NUR ---
HAND-OFF: REPORT GIVEN TO LISA GAITAN.
--- NOTE | 2019-06-25 19:26 | NUR ---
ED Nurse Note: pt taken to CT
--- NOTE | 2019-06-25 19:51 | NUR ---
ED Nurse Note: pt returned from CT
--- NOTE | 2019-06-25 20:16 | Diagnostic Imaging Report ---
Indication: Abdominal pain Technique: Continuous helical transaxial imaging of the abdomen and pelvis was obtained from the lung bases to the pubic symphysis during intravenous contrast administration. Coronal 2-D reformats were also obtained. Study obtained in a Siemens sensation [address] Automatic Exposure Control was utilized. Total Dose length Product (DLP): 560.[address] Dose Index Volume (CTDIvol): 10.85 mGy Comparison: None Findings: The lung bases are clear. The liver and spleen, kidneys, pancreas, adrenal glands appear unremarkable. The gallbladder is not seen may be contracted or may been previously resected. Gas pattern is nonobstructive. The uterus is noted. Bladder is mostly nondistended on this study. Appendix is not definitely identified. There are no secondary signs of acute appendicitis appreciated. Bilateral defects of the pars interarticularis demonstrated at L5. There is minimal anterior subluxation of L5 vertebra relative to S1. IMPRESSION: No acute findings. L5 spondylolysis. Minimal spondylolisthesis L5 on S1. [facility] has communicated the preliminary results to the Emergency Department. Their findings are largely concordant with this report. The CT scanner at [facility] is accredited by the [employer] and the scans are performed using dose optimization techniques as appropriate to a performed exam including Automatic Exposure control.
[2019-06-25] MEDS ORDERED: DICYCLOMINE HCL10 MG ORAL (20:19)
[2019-06-25] MEDS ORDERED: Dicyclomine 10mg Cap ORAL ONE (20:45)
[2019-06-25 20:50] VITALS: BP 96/59
--- NOTE | 2019-06-25 20:50 | NUR ---
ER DISCHARGE NOTE: Patient is cleared to be discharged per ERMD, pt is aox4, on room air, with stable vital signs. pt was given dc and prescription instructions, pt was able to verbalize understanding, pt id band and iv site removed without complications. pt is able to ambulate with steady gait. pt took all belongings.
== END 2019-06-25 20:50 | disposition home or self-care (01) ==
LOC: EMR 18:42
DX: R10.84 Generalized abdominal pain (principal); Z88.6 Allergy status to analgesic agent; Z88.0 Allergy status to penicillin; Z88.2 Allergy status to sulfonamides; Z88.8 Allergy status to other drugs, medicaments and biological substances; I10 Essential (primary) hypertension; Z86.73 Personal history of transient ischemic attack (TIA), and cerebral infarction without residual deficits
CPT/HCPCS: 74177; 80053; 83690; 84702; 85025; 96361; 96374; 96375; J2270; J2405; Q9967; Z7502; 99284